=== PATIENT | female | born 1935 | race Caucasian/White ===

== ENCOUNTER 2017-01-12 18:55 | Emergency (ER) | payer MEDICARE ==
[~2017-01-12] VITALS: Ht 147.3 cm; Wt 61.2 kg
[~2017-01-12 18:55] MED LIST: ASPIRIN EC81 MG PO; DAILY MULTIPLE1 EACH PO; DIOVAN80 MG PO
[2017-01-12] MEDS ORDERED: BYSTOLIC10 MG PO (19:18)
[2017-01-12] MEDS ORDERED: LOSARTAN POTAS100 MG PO (19:19)
[2017-01-12] MEDS ORDERED: CEPHALEXIN500 MG PO (22:13)
--- NOTE | 2017-01-13 20:50 | EKG ---
[facility] [address] [facility] [place], [place] [address] Signed Normal sinus rhythm Low voltage QRS Borderline ECG No previous ECGs available Confirmed by LOUIS PAGE MD ([id number]) on 01/13/2017 8:50:14 PM Electronically Signed By: LOUIS PAGE MD 01/13/172049 PATIENT NAME: DESEAN RANGEL Electrocardiogram DATE OF : 35 PHYSICIAN: LOUIS PAGE MD REPORT #: [id number] REPORT IS CONFIDENTIAL AND NOT TO BE RELEASED WITHOUT AUTHORIZATION
== END 2017-01-12 22:42 | disposition home or self-care (01) ==
LOC: ED 18:55
DX: R42 Dizziness and giddiness (principal); J20.9 Acute bronchitis, unspecified; I10 Essential (primary) hypertension; Z90.710 Acquired absence of both cervix and uterus; Z90.49 Acquired absence of other specified parts of digestive tract; Z90.89 Acquired absence of other organs; Z98.890 Other specified postprocedural states; Z88.2 Allergy status to sulfonamides; Z88.5 Allergy status to narcotic agent; Z79.82 Long term (current) use of aspirin; Z79.899 Other long term (current) drug therapy
CPT/HCPCS: 71010; 80053; 81001; 84484; 85025; 93005; 93010; 96360; 99284; J7030

== ENCOUNTER 2017-12-12 00:59 | Emergency (ER) | payer MEDICARE ==
[~2017-12-12] VITALS: Ht 147.3 cm; Wt 61.2 kg
[~2017-12-12 00:59] MED LIST changes: +BYSTOLIC10 MG PO; +CEPHALEXIN500 MG PO; +LOSARTAN POTAS100 MG PO
[2017-12-12] MEDS ORDERED: CLOPIDOGREL75 MG PO (01:09)
--- NOTE | 2017-12-12 14:52 | EKG ---
[facility] [address] [facility] [place], [place] [address] Signed Normal sinus rhythm Normal ECG When compared with ECG of 12-JAN-2017 19:32, No significant change was found Confirmed by LOUIS PAGE MD ([id number]) on 12/12/2017 2:52:00 PM Electronically Signed By: LOUIS PAGE MD 12/12/17 1452 PATIENT NAME: NELSON RANGELERINN BAKERNE Electrocardiogram DATE OF : 35 PHYSICIAN: LOUIS PAGE MD REPORT #: [id number] REPORT IS CONFIDENTIAL AND NOT TO BE RELEASED WITHOUT AUTHORIZATION
== END 2017-12-12 03:50 | disposition home or self-care (01) ==
LOC: ED 00:59
DX: R42 Dizziness and giddiness (principal); I10 Essential (primary) hypertension; Z88.2 Allergy status to sulfonamides; Z88.8 Allergy status to other drugs, medicaments and biological substances; Z88.5 Allergy status to narcotic agent; Z79.899 Other long term (current) drug therapy
CPT/HCPCS: 70450; 71045; 80053; 81001; 84484; 85025; 85610; 85730; 93005; 93010; 96374; 99285; J2405

== ENCOUNTER 2023-03-22 10:07 | Inpatient (IN) | payer MEDICARE ==
[~2023-03-22] VITALS: Ht 147.3 cm; Wt 48.0 kg
[~2023-03-22 10:07] MED LIST changes: +CLOPIDOGREL75 MG PO
[2023-03-22 10:41] LABS: BASOPHILS 0.3 % (0-2); HEMATOCRIT 44.3 % (35.0-50.0); HEMOGLOBIN 14.6 g/dL (12.0-18.0); MCH 30.5 (27-36); MCHC 32.9 g/dl (30-36); MCV 92.6 fl (81-99); MONOCYTES 5.5 % (0-12); NEUTROPHILS 89.2 % (39-80); PLATELET COUNT 161 K/uL (140-440); RBC 4.79 M/ul (4.3-5.7); RDW 14.1 (10.5-15.0)
[2023-03-22 11:08] LABS: ALBUMIN 1.6 g/dL (3.4-5.0); ALBUMIN/GLOBULIN RATIO 0.33 (1.1-2.4); ANION GAP 12.6 (7-21); CALCIUM 9.2 mg/dL (8.5-10.1); POTASSIUM 3.6 mmol/L (3.5-5.1); PROTEIN, TOTAL 6.4 g/dL (6.4-8.2)
[2023-03-22 13:47] VITALS: BP 157/99
--- NOTE | 2023-03-22 14:19 | NUR ---
1339 - admitted to [facility], responsive to pain only,
--- NOTE | 2023-03-22 14:25 | NUR ---
ATTEMPT ASSESSMENT. PATIENT DOES NOT RESPOND TO VOICE. DR. CARTY IN TO SEE HER AT THIS TIME.
--- NOTE | 2023-03-22 15:30 | NUR ---
Got report from NEVILLE Meier as she is leaving for the day.
--- NOTE | 2023-03-22 16:32 | NUR ---
PEREZ CATHETER WAS PLACED. URINE OUTPUT RETURN. UA TO BE SENT TO LAB. PATIENT ONLY RESPONDS TO PAINFUL STIMULATION OR MOVEMENT OF ARMS OR LEGS BY NURSE.
--- NOTE | 2023-03-22 16:38 | NUR ---
Remains very lethargic. Unable to complete assessment, will attempt tomorrow. If patient remains unable to complete assessment, will contact family.
[2023-03-22 16:44] LABS: BILIRUBIN, URINE POSITIVE (negative); BLOOD/HGB, URINE LARGE (Negative); KETONE, URINE SMALL (Negative); LEUK ESTERASE, URINE NEGATIVE (negative); NITRITE, URINE NEGATIVE (negative)
[2023-03-22 16:51] LABS: BACTERIA, URINE NONE SEEN /hpf (negative); CRYSTALS, URINE NONE SEEN (0-1+); EPITHELIAL CELLS, URINE NONE SEEN /lpf (0-1+); WHITE BLOOD CELLS, URINE 0-1 /HPF (0-5)
[2023-03-22 16:52] LABS: COLLECTION TYPE, URINE CLEAN CATCH; REFLEX CULTURE, URINE No (No)
[2023-03-22 17:17] VITALS: BP 142/83
--- NOTE | 2023-03-22 17:25 | NUR ---
PATIENT WAS GIVEN FENTANYL IN THE ER. PATIENT IS CURRENTLY SLEEPING AND ONLY RESPONING TO PAINFUL STIMULATION OR THE NURSE MOVING PATIENT DURING NIH SCALE. PATIENT WILL MOAN BUT NO UNDERSTANDABLE WORDS.
--- NOTE | 2023-03-22 17:59 | NUR ---
Patient sleeping in bed with oxygen on. Regular respirations noted.
--- NOTE | 2023-03-22 18:48 | NUR ---
PATIENT ROLLED ONTO HER LEFT SIDE. PATIENT IS STARTING TO RESPOND MORE TO MOVEMENT AND TRYING TO HELP. WAS WAS AT 100% WITH 2L NC. THIS NURSE REMOVED O2 AND PATIENT STAYING AT 95% WILL CONTINUE TO MONITOR.
[2023-03-22 19:30] VITALS: BP 137/72
[2023-03-23 02:50] VITALS: BP 195/66
--- NOTE | 2023-03-23 02:59 | NUR ---
PT BEGINNING TO RESPOND MORE, MOANS WITH TOUCHING OF RT ARM, SHE IS MOVING LT ARM MORE, PUPILS STILL STILL PINPOINT AND NON RESPONSIVE, WILL NOT OPEN EYES AND FOLLOW DIRECTIONS, RESPONDING TO STIMULI OM FEET.
--- NOTE | 2023-03-23 03:00 | NUR ---
PT. VITALS AND I/OS CHARTED APPROPRIATELY. CALL LIGHT LEFT WITHIN REACH. NO OTHER NEEDS AT THIS TIME.
--- NOTE | 2023-03-23 03:15 | NUR ---
ATTEMPTED STROKE SCALE, PT NOT RESPONDING TO VOICE, PUPILS REMAIN PIN POINT AND NO REACTIVE. IS NOT RESPONDING TO TOUCH OTHER THAT PAIN IN RT ARM, MOANS WHEN MOVED
--- NOTE | 2023-03-23 03:20 | NUR ---
COMPLETED NIH, PT RESPONDED TO STIMULI AND VOICE, ATTEMPTED TO FOLLOW DIRECTION WHEN ASKED TO OPEN EYES, PUPILS ON RT REMAIN PIN POINT, LT PUPIL IS 4, FOLLOWED DIRECTION WHEN ASKED TO MOVE FEET, SHE CAN WIGGLE HER TOES, SHE IS UNABLE TO LIFT BL LEGS, ASKED HER TO SQUEEZE MY HANNAH AND SHE ATTEMPTED, IT WAS VERY LIGHT. WHEN TRYING TO MOVE RT ARM, SHE SLIDES IT SOMETIMES INTO POSITION THAT DOES NOT HURT, WHEN TOUCHED IT IS PAINFUL BUT CAN EXTEND WITH ASSIST, LT ARM SHE EXTENDS ON HER OWN,ASKED PT TO SMILE AND SHE HAS A LT SIDE DROOP. ASKED HER IF SHE WANTED TO MOVE TO HER BACK AND SHE SAID YES. HER WORDS ARE SPONTANEOUS TO ASKED AND IT TIMES, BUT SHE SAYS 1 WORD AT A TIME AND APPEARS TO FORCE THEM OUT
[2023-03-23 05:42] LABS: BASOPHILS 0.5 % (0-2); EOSINOPHILS 0.1 % (0-6); HEMATOCRIT 41.7 % (35.0-50.0); HEMOGLOBIN 13.9 g/dL (12.0-18.0); MCH 30.9 (27-36); MCHC 33.3 g/dl (30-36); MONOCYTES 6.2 % (0-12); NEUTROPHILS 83.2 % (39-80); PLATELET COUNT 145 K/uL (140-440); RBC 4.49 M/ul (4.3-5.7)
[2023-03-23 06:02] LABS: BUN/CREATININE RATIO 38.27 (6.0-28.6); CREATININE, SERUM 0.81 mg/dL (0.55-1.02)
[2023-03-23 06:52] VITALS: BP 143/76
--- NOTE | 2023-03-23 06:53 | NUR ---
PT. VITAL SIGNS DONE AND DOCUMENTED. PT. IN BED AWAKE, CALL LIGHT LEFT WITHIN REACH, ROOM TIDIED, TRASH CANS EMPTIED, NO OTHER NEEDS AT THIS TIME.
--- NOTE | 2023-03-23 07:10 | NUR ---
Report obtained by Teresa RN, pt slurred speech, opens eyes, IVF infusing. f/c patent.
--- NOTE | 2023-03-23 08:42 | NUR ---
hob elevated, female family member in room, pt more alert, trying to talk to niece Zoya. Bedside speech eval done at bedside, failed. coughing after liquids, long time to swallow and some dripped from her mouth. Charge nurse to and MD to be notified, aspiration precautions in place
--- NOTE | 2023-03-23 09:14 | NUR ---
MED REC COMPLETE
--- NOTE | 2023-03-23 09:20 | NUR ---
DR CARTY NOTIFIED OF PTS NOT PASSING BEDSIDE SPEECH EVAL, CHARGE NURSE AWARE TOO
[2023-03-23 09:59] VITALS: BP 163/88
--- NOTE | 2023-03-23 10:33 | NUR ---
MS LYUDMILA. PT APPEARED TO BE SLEEPING. DID NOT AWAKEN. LEFT PRAYER CARD AND CONTACT CARD.
--- NOTE | 2023-03-23 11:25 | NUR ---
Pt repositioned in bed, opens eyes when talked to. moans when turned to R side. was cooperative with care. PT in room working with pt
--- NOTE | 2023-03-23 12:19 | NUR ---
turned to R side, on room air, R arm elevated in pillows, worked with PT earlier. PT NPO, aspiration precautions in place. bruising over L knee healing, Allevyn dressing over R hip intact. f/c patent. eyes closed, oral care done
--- NOTE | 2023-03-23 12:40 | NUR ---
UR NOTE MCG STROKE: ISCHEMIC (ISC) INPATIENT 03/22/23 MET CLINICAL INDICATIONS FOR ADMISSION TO INPATIENT CARE GL DAY 1
[2023-03-23 13:47] VITALS: BP 152/67
--- NOTE | 2023-03-23 14:00 | NUR ---
Spoke with pt's niece, Zoya linda. Pt lives in a townhouse/duplex. Pt lives alone and has a cane and a walker. Pt , pt will need a SNF on dc. I gave her the list and the card to scan for review of SNFs in our area. She then states she would prefer to use [facility] as it is in town and she can visit daily. We then discussed half-way medicaid and I gave her the information to call [facility] and start this process. She also states there is a niece that would like to move in and care for Ana. I will send the chart to [facility] and request they review for placement next week.
--- NOTE | 2023-03-23 14:29 | NUR ---
Turned and repositioned, tolerated well, slight moaning present when R arm touched, up in pillows. turned to R side. heath care done, f/c patent, low uo. aware. IVF patent. NPO, mouth care done. comfortable, calm after turning, hob elevated for comfort and wash clothes applied between hands
--- NOTE | 2023-03-23 15:31 | NUR ---
RESTING, EYS CLOSED, ON ROOM AIR. NO CHANGES, IVF INFUSING, F/C PATENT, TELE#[address] W RARE OCCASSIONAL PVC'S.
[2023-03-23 17:05] VITALS: BP 153/77
--- NOTE | 2023-03-23 17:42 | NUR ---
Turned and repositioned to Right side, moaned once, eyes closed, procedures explained. non verbal,IVF infusing w/o problems. NPO, oral care done. f/c patent.tele#[address]
[2023-03-23 22:00] VITALS: BP 189/60
--- NOTE | 2023-03-24 00:28 | NUR ---
PT RESPONDS TO VOICE. FOLLOWS COMMANDS TO OPEN EYE, FOLLOW LIGHT, LIFT YOUR ARM, LIFT YOUR LEG, SQUEEZE FINGERS. SHE CAN NOT HOLD LEGS UP, SHE MAKES VERY SLIGHT MOVEMENTS WITH THEM IN BED. SHE CAN LIFT HER LEFT ARM UP ASSISTED AND THEN IF FALS TO THE BED. RT ARM IS IMMOBILE, SHE HAS PAIN IN THAT ARM AND SHOULDER. PUPILS ARE 3 AT THIS TIME, NON REACTIVE, SHE DOES FOLLOW LIGHT BUT GETS STUCK AND THEN CHANGED DIRECTION. SHE CAN ANSWER MOST QUESTIONS WITH YES/NO. HE WORDS ARE1 WORD AND MOST TIMES CANNOT UNDERSTAND THEM. REPOSITIONING TOLERATED
[2023-03-24 01:43] VITALS: BP 154/73
[2023-03-24 04:59] VITALS: BP 144/67
--- NOTE | 2023-03-24 07:38 | NUR ---
RECEIVED REPORT FROM NEVILLE CABRERA. PT RESTING IN BED WITH EYES CLOSED, RR EVEN AND UNLABORED. ASSUMING CARE OF PT WITH NEVILLE DAI.
--- NOTE | 2023-03-24 08:22 | NUR ---
NURSE AND I REPOSITIONED PATIENT ON HER LEFT SIDE. ALSO DID ORAL CARE AND WASHED HER FACE AND PUT CHAPSTICK ON. PATIENT IS NOW SLEEPING.
[2023-03-24 10:06] VITALS: BP 162/89
--- NOTE | 2023-03-24 10:23 | NUR ---
PT RESTING IN BED WITH EYES CLOSED, AWAKENS TO THIS RN'S VOICE. PT SAYS "YES" WHEN ASKED IF DOING OKAY AND IF TIRED. PATIENT SCORES 0 ON FLACC PAIN SCALE. PT UNABLE TO SAY NAME, DATE, OR LOCATION. NIHSS SCORE "28" FOR LOC, NOT ANSWERING MONTH/AGE, NOT CLOSING HANDS, PARTIAL GAZE PAULSY TO R SIDE, PARTIAL HEMIANOPSIA TO R SIDE, R SIDE FACIAL DROOP, LEFT ARM FALLING TO BED AFTER 2 SECONDS, R ARM AND BLE NOT LIFTING, BLE ATAXIA, R ARM ATAXIA, SLURRED SPEECH, NOT BEING ABLE TO DESCRIBE PICTURE, NOT BEING ABLE TO SAY SENTENCES. PT IS ABLE TO SAY LIST OF WORDS UNDERSTANDABLY AND IS ABLE TO FOLLOW COMMANDS. PUPILS CONTINUE TO BE SLUGGISH TO RESPOND TO LIGHT. PULSES FAINT IN BLE, EDEMA REMAINS IN HANDS AND BLE. NO CHANGE IN SKIN ASSESSMENT FROM PREVIOUS SHIFT, BRUISES AND REDDENED AREAS ON BLE REMAIN, ALLEYVEN ON R HIP AND R SHOULDER REMAIN C/D/I. LAST BM UNKNOWN, PT CONTINUES TO BE NPO WITH ASPIRATION PRECAUTIONS IN PLACE. PEREZ CATHETER REMAINS IN PLACE DRAINING QUANTITY SUFFICIENT CLEAR YELLOW URINE. PT STATES "NO" WHEN ASKED IF SHE HAS OTHER NEEDS AT THIS TIME, PT STATES "CAN'T" WHEN ASKED TO DEMONSTRATE USE OF THE CALL LIGHT. CURTAIN TO ROOM OPEN AND ROOM IS BY NURSES STATION, REQUIRES DILIGENT HOURLY ROUNDING. BED RAILS UP, ASPIRATION PRECAUTIONS IN PLACE.
--- NOTE | 2023-03-24 11:26 | NUR ---
PT RESTING IN BED WITH EYES CLOSED, RR EVEN AND UNLABORED. CURTAIN OPEN D/T PATIENT UNABLE TO USE CALL LIGHT INDEPENDENTLY.
[2023-03-24 11:43] LABS: BASOPHILS 0.6 % (0-2); EOSINOPHILS 0.5 % (0-6); HEMATOCRIT 41.4 % (35.0-50.0); HEMOGLOBIN 13.9 g/dL (12.0-18.0); MCH 31.1 (27-36); MCHC 33.6 g/dl (30-36); MCV 92.4 fl (81-99); MONOCYTES 6.9 % (0-12); PLATELET COUNT 146 K/uL (140-440); RBC 4.48 M/ul (4.3-5.7); RDW 13.5 (10.5-15.0)
[2023-03-24 11:58] LABS: ALBUMIN 2.6 g/dL (3.4-5.0); ALBUMIN/GLOBULIN RATIO 0.76 (1.1-2.4); ANION GAP 15.3 (7-21); BILIRUBIN, TOTAL 1.2 ng/dL (0.2-1.0); BUN/CREATININE RATIO 25.67 (6.0-28.6); CALCIUM 8.6 mg/dL (8.5-10.1); CREATININE, SERUM 0.74 mg/dL (0.55-1.02); POTASSIUM 3.3 mmol/L (3.5-5.1)
--- NOTE | 2023-03-24 12:02 | NUR ---
PT RESTING IN BED WITH EYES CLOSED, RR EVEN AND UNLABORED. CURTAIN OPEN D/T PT NOT BEING ABLE TO USE CALL LIGHT INDEPENDENTLY.
--- NOTE | 2023-03-24 12:38 | NUR ---
WE HAVE BEEN TURING PATIENT EVERY TWO HOURS. FROM RIGHT SIDE TO LEFT SIDE PUTTING PILLOWS UNDER HER ARMS. PUTTING PILLOWS UNDER HER HIPS AND BACK. AND BETWEEN HER LEGS.
--- NOTE | 2023-03-24 13:40 | NUR ---
DRESSING ON L AC IV CHANGED D/T SATURATION, IV WNL, FLUSHED. PT STATES "NO" WHEN ASKED IF SHE HAS ANY PAIN. PT RESPONDS TO VOICE AND TOUCH, UNABLE TO ANSWER ORIENTATION QUESTIONS, SPEECH CONTINUES TO BE SLURRED AND WITH SLOW RESPONSE TIME. RIGHT FACIAL DROOP REMAINS WELL ABILITY TO MOVE EXTREMETIES. PT CONTINUES TO HAVE SENSATION IN ALL EXTREMETIES. NO CHANGE IN PUPIL ASSESSMENT. CURTAIN OPEN D/T PT UNABLE TO INDEPENDENTLY USE CALL LIGHT, BED RAILS UP.
[2023-03-24 13:54] VITALS: BP 166/89
--- NOTE | 2023-03-24 15:28 | NUR ---
BEDSIDE BLOOD SUGAR IS 79 AT THIS TIME. PATIENT IS AWAKE, ALERT TO SELF AND PLACE. PATIENT IS ABLE TO RESPOND "YES" AND "NO" TO MY QUESTIONS. IV FLUIDS CHANGED AT THIS TIME PER PROVIDER ORDER. PATIENT REMAINS CLOSE TO RN STATION. NUERO STATUS UNCHANGED FROM EARLIER ASSESSMENT. PATIENT REPOSITIONED AT THIS TIME.
--- NOTE | 2023-03-24 15:50 | NUR ---
MONY CARE/PEREZ CARE PERFORMED BY NESSA CARPENTER. NEW DEPENDS IN PLACE, PT TURNED ON TO RIGHT SIDE.
--- NOTE | 2023-03-24 16:25 | NUR ---
PT LYING IN BED, JAGDEEP VISITING AT THE BEDSIDE. PATIENT TALKING MORE THAN DURING AFTERNOON ASSESSMENT AT THIS TIME, SAYING TWO-THREE WORDS AT A TIME. PATIENT STATES "NO, THANK YOU" WHEN ASKED IF SHE NEEDED ANYTHING AT THIS TIME, BED RAILS UP, CURTAIN OPEN D/T PATIENT INABILITY TO INDEPENDENTLY USE CALL LIGHT.
[2023-03-24 17:08] VITALS: BP 158/88
--- NOTE | 2023-03-24 18:32 | NUR ---
PT REQUESTS TO CALL MARIELENA MEYER AND FOR THIS RN TO GIVE HIM UPDATES ON HER CARE, MITCH CALLED, UPDATED. MITCH SPOKE WITH PT ON TELEPHONE AND PT STATES "YES" WHEN ASKED IF SHE WOULD LIKE MITCH TO BE UPDATED ON HER CARE IN THE FUTURE DURING THIS HOSPITAL STAY, STATES "HE IS THE PERSON IF ANYONE". PT STATES NO FURTHER NEEDS AT THIS TIME, CALL BUTTON PROVIDED, PT OCCASIONALLY ABLE TO USE, BED RAILS UP.
--- NOTE | 2023-03-24 19:22 | NUR ---
SHIFT REPORT RECEIVED FROM INGRID LOZADA, PT RESTING QUIETLY, WITHOUT DISTRESS.
[2023-03-24 20:45] VITALS: BP 147/67
--- NOTE | 2023-03-24 20:45 | NUR ---
VS DONE PER EDMUND RN AND GARY SZYMANSKI, REVIEWED BY THIS RN, NOTED TEMP WAS 99.4, PLAN TO MONITOR.
--- NOTE | 2023-03-24 20:55 | NUR ---
EYES OPEN, SMILE, SAID "THANK YOU". LIGHT MOANING WHEN TURNED TO LEFT SIDE. ON ROOM AIR. NO RESPONSE TO R ARM, TENDER WHEN TOUCHED, CALMER WHEN NOT TOUCHED. TURNED AND REPOSITIONED, F/C CARE DONE. PATENT. ORAL CARE DONE
--- NOTE | 2023-03-24 22:40 | NUR ---
PT RESTING QUIETLY, AWAKE AND ALERT, SPEECH SLOW BUT APPROPRIATE, ABLE TO ANSWER HER NAME, YEAR OF AND WHERE SHE IS APPROPRIATELY, ASSESSMENT COMPLETED , TEMP AT THIS TIME 98.3 TEMPORAL, CATH CARE GIVEN, URINE YELLOW, PT REMAINS NPO, IV PATENT IN L AC, SITE INTACT, SIDE RAILS UP X 4, BED LOW POSITION.
--- NOTE | 2023-03-25 00:25 | NUR ---
PT ASLEEP, RESP EVEN AND REG, PT GENTLY TILTED TO LEFT SIDE, IV PATENT AND INFUSING WELL.
[2023-03-25 02:11] VITALS: BP 152/75
--- NOTE | 2023-03-25 02:15 | NUR ---
PT AWAKEN FOR VS, VS STABLE AND PT AFEBRILE, U/O 1275ML LIGHT YELLOW URINE, PT REPOSITONED, IV PATENT, PT RESTING, NEURO STATUS UNCHANGED.
--- NOTE | 2023-03-25 04:20 | NUR ---
PT AWAKE, REPOSITIONED, WITHOUT COMPLAINTS AT THIS TIME, IV PATENT.
[2023-03-25 05:19] VITALS: BP 171/76
--- NOTE | 2023-03-25 05:19 | NUR ---
VS AND I/O COMPLETED PER GARY SZYMANSKI AND EDMUND RN, PT REPOSITONED AT THIS TIME.
--- NOTE | 2023-03-25 07:45 | NUR ---
PT RESTING EYES CLOSED AT TIME OF SHIFT REPORT, LEFT UNDISTURBED. CALL LIGHT IN REACH PT BREATHING EVEN AND UNLABORED SNORING SOFTLY.
--- NOTE | 2023-03-25 09:17 | NUR ---
PT AWAKENS TO VOICE, AGREES SHE SLEPT WELL. REPOSITIONED IN BED ORAL CARE PROVIDED.
[2023-03-25 09:56] VITALS: BP 148/80
--- NOTE | 2023-03-25 10:07 | NUR ---
PT IN BED ROTATED OFF LEFT SIDE. VITALS AND I/O'S COMPLETED, ORAL CARE AND SKIN CARE COMPLETED. CALL LIGHT WITHIN REACH.
--- NOTE | 2023-03-25 11:29 | NUR ---
P/T IN TO WORK WITH PT.
[2023-03-25 13:10] LABS: ANION GAP 11.2 (7-21); BUN/CREATININE RATIO 14.49 (6.0-28.6); CALCIUM 8.6 mg/dL (8.5-10.1); CREATININE, SERUM 0.69 mg/dL (0.55-1.02); POTASSIUM 3.2 mmol/L (3.5-5.1)
--- NOTE | 2023-03-25 14:30 | NUR ---
PT TRANSFERRED BACK TO BED VIA [facility]. FULL BED BATH AND CATH CARE COMPLETED. ORAL CARE PROVIDED, HAIR SHAMPOO'D AND LINENS CHANGED. PT IS ABLE TO SPEAK A COUPLE WORDS AT A TIME AGREES SHE FEELS REFRESHED. RETURNS TO DOZING SOFTLY ALMOST IMMEDIATELY. DR MCLAIN CONTACTED FOR ORDER CHANGE OF POTASSIUM FROM PO TO IV.
[2023-03-25 14:49] VITALS: BP 154/76
--- NOTE | 2023-03-25 16:12 | NUR ---
IV SITE LEFT AC FOUND INFILITRATED WITH POTASSIUM INFUSING. SITE IS RED AND SLIGHTLY PUFFY. NEW SITE ESTABLISHED R HAND. TOLERATED WELL BY PT
--- NOTE | 2023-03-25 17:38 | NUR ---
DR MCLAIN NOTIFIED OF ELEVATED BP, NO ORDERS GIVEN OF YET
[2023-03-25 17:58] VITALS: BP 163/110
--- NOTE | 2023-03-25 18:01 | NUR ---
PT REPOSITIONED. ASKED IF SHE IS IN PAIN PT SHAKES HER HEAD NO. ASKED IF SHE WANTS PAIN MEDICATION SHE FROWNS AND RESPONDS "NO" ORAL CARE PROVIDED SHE DENIES NEED OF ANYTHING.
--- NOTE | 2023-03-25 18:36 | NUR ---
PT IV ALARMING. PT PULLED IV OUT OF HER HAND. COBAN APPLIED WITH GAUZE NEW SITE ACCESSED
--- NOTE | 2023-03-25 19:08 | NUR ---
BEDSIDE REPORT RECEIVED FROM CRIS RN, PT RESTING QUIETLY, RESP EVEN AND REG. IV INFUSING WELL. SIDE RAILS UP AND BED LOW POSITION. HOB ELEVATED APPROX 20 DEGREES.
--- NOTE | 2023-03-25 21:30 | NUR ---
PT APPEARS TO SLEEP, RESP EVEN AND REG.
[2023-03-25 22:34] VITALS: BP 187/91
--- NOTE | 2023-03-25 23:00 | NUR ---
MONY/PEREZ CARE DONE. THIS TELEVISION SCRIPT WRITER AND PRIMARY RN REPOSITIONED PATIENT TO FLOAT.
--- NOTE | 2023-03-25 23:00 | NUR ---
PRICING CLERK REPORTS BP ELEVATED AT VS CHECK, BP RECHECKED AND IS CURRENTLY 160/95, PLAN TO MONITOR, ASSESSMENT COMPLETED, PT RESPONSIVE, FOLLOW SIMPLE COMMANDS, HAND DIRECTOR ENTERPRISE SYSTEMS WEAKER ON RIGHT SIDE, ABLE TO WIGGLE TOES TO REQUEST, ORAL CARE GIVEN, ORAL MOISTURIZER AND CHAP STICK TO LIPS USED. PT TURNED AND CATH CARE COMPLETED PER PRICING CLERK. PEREZ DRAINING YELLOW URINE, IV SITE WRAPPED AND PATENT.
--- NOTE | 2023-03-26 01:10 | NUR ---
PT APPEARS TO SLEEP, RESP EVEN AND REG, IVF INFUSING WELL.
[2023-03-26 02:11] VITALS: BP 177/90
--- NOTE | 2023-03-26 02:30 | NUR ---
PT RESTING QUIETLY, VS DONE BY ANASTASIIA SZYMANSKI AND REVIEWED, BP REMAINS ELEVATED 177/90. PT REPOSITIONED, BACK TO SLEEP.
[2023-03-26 04:30] VITALS: BP 149/78
--- NOTE | 2023-03-26 04:30 | NUR ---
PT RESTING WITH EYES CLOSED, OPENS EYES TO VOICE AND TOUCH, VS DONE, BP NOW 149/78, ORAL CARE GIVEN, PT TILTED TO RIGHT SIDE, PEREZ OUT 750ML YELLOW URINE.
--- NOTE | 2023-03-26 05:58 | NUR ---
PT ASLEEP, RESP EVEN AND REGULAR, NEW BAG OF D5NS HUNG AND INFUSING WELL AT 100ML/HR, SITE PATENT.
[2023-03-26 06:42] LABS: ANION GAP 9.2 (7-21); BUN/CREATININE RATIO 11.11 (6.0-28.6); CALCIUM 8.4 mg/dL (8.5-10.1); CREATININE, SERUM 0.72 mg/dL (0.55-1.02); MAGNESIUM 1.8 mg/dL (1.8-2.4); POTASSIUM 3.2 mmol/L (3.5-5.1)
--- NOTE | 2023-03-26 07:31 | NUR ---
PT RESTING EYES CLOSED A TIME OF SHIFT EXCHANGE. SNORING SOFTLY LEFT UNDISTURBED.
--- NOTE | 2023-03-26 09:10 | NUR ---
PT AWAKENS TO VOICE MAKES EYE CONTACT ANSWERS SIMPLE QUESTIONS WITH ONE WORD RESPONSE. REPOSTIONED IN BED ORAL CARE PROVIDED
--- NOTE | 2023-03-26 09:23 | NUR ---
PT NEPHEW CALLS FROM [employer] PHONE HELD TO HER EAR. PT CHUCKLES AND SLURRS SOME WORDS, SMILES, AND IS MORE ALERT THAN PREVIOUSLY THIS SHIFT. RETURNS TO RESTING EYES CLOSED SOON AFTER
[2023-03-26 09:51] VITALS: BP 148/78
--- NOTE | 2023-03-26 09:56 | NUR ---
PATIENT IN BED RESTING WITH EYES CLOSED. VITALS AND I&O'S DONE AND CHARTED. CALL LIGHT IN REACH. NO FURTHER NEEDS AT THIS TIME.
--- NOTE | 2023-03-26 10:27 | NUR ---
DR MCLAIN IN TO SEE PT.
--- NOTE | 2023-03-26 12:44 | NUR ---
PT WORKS WITH P/T TODAY MORE ALERT WHEN AWAKE THAN YESTERDAY BUT MORE SLEEPY INBETWEEN STIMULATION. REPOSITIONED AND ORAL CARE COMPLETE
--- NOTE | 2023-03-26 12:53 | NUR ---
IN TO REPOSITION PATIENT. PATIENT REPOSITIONED ONTO LEFT SIDE WITH PILLOW UNDER RIGHT HIP. MONY CARE AND CATH CARE DONE. NEW ATTENDS IN PLACE. CALL LIGHT IN REACH. NO FURTHER NEEDS AT THIS TIME.
--- NOTE | 2023-03-26 13:30 | NUR ---
PT RESTING EYES CLOSED AWAKENS TO TOUCH. AGREES SHE IS COMFORTABLE. DENIES PAIN
[2023-03-26 14:58] VITALS: BP 165/83
--- NOTE | 2023-03-26 15:03 | NUR ---
PATIENT IN BED RESTING WITH EYES CLOSED. VITALS AND I&O'S DONE AND CHARTED. PATIENT REPOSITIONED ONTO RIGHT SIDE WITH PILLOW UNDER LEFT SIDE. CALL LIGHT IN REACH. NO FURTHER NEEDS AT THIS TIME.
--- NOTE | 2023-03-26 15:42 | NUR ---
PT RESTING EYES CLOSED. OPENS EYES FOR VISITOR SAYS A FEW WORDS, MAINTAINS EYE CONTACT, APPEARS INTERACTIVE ABLE.
--- NOTE | 2023-03-26 17:36 | NUR ---
PT REPOSITIONED IN HER BED ORAL CARE DONE.
[2023-03-26 18:32] VITALS: BP 188/71
--- NOTE | 2023-03-26 18:38 | NUR ---
PATIENT IN BED RESTING WITH EYES CLOSED. VITALS AND I&O'S DONE AND CHARTED. RN NOTIFIED OF TEMP AND BLOOD PRESSURE. CALL LIGHT IN REACH. NO FURTHER NEEDS AT THIS TIME.
--- NOTE | 2023-03-26 19:02 | NUR ---
BEDSIDE REPORT RECEIVED FROM CRIS RN, PT RESTING QUIETLY WITH EYES CLOSED, RESP EVEN AND REG, HOB ELEVATED APPROX 25 DEGREES, SIDE RAILS UP X 4, BED LOW POSITION.
--- NOTE | 2023-03-26 19:50 | NUR ---
PT CONTINUES TO SLEEP, NEW BAG OF D5NS HUNG AND INFUSING WELL AT 100ML/HR, SITE INTACT.
--- NOTE | 2023-03-26 20:32 | NUR ---
PT RESTING QUIETLY WITH EYES CLOSED, VS AND ASSESSMENT DONE, PT OPENS EYES TO NAME, SMILES AND LAUGHS A COUPLE TIMES TO QUESTIONS ASKED BY THE NURSE, ABLE TO FINANCIAL ADVOCATE TO COMMAND, RIGHT SIDE WEAKER THAN THEN LEFT, PT REMAINS NPO, ORAL CARE GIVEN WITH ORAL MOISTURIZER, PT REPOSITIONED TO RIGHT SIDE, HOB REMAINS ELEVATED FOR ASPIRATION PRECAUTIONS, PEREZ PATENT, CATH CARE COMPLETED. IV SITE INTACT AND COVERED WITH KERLIX.
[2023-03-26 20:34] VITALS: BP 178/84
--- NOTE | 2023-03-26 22:30 | NUR ---
PT APPEARS TO SLEEP, RESP EVEN AND REG, WITHOUT DISTRESS.
--- NOTE | 2023-03-27 00:06 | NUR ---
PT APPEARS TO SLEEP, RESP EVEN AND REG, IVF INFUSING WELL, PT REPOSITIONED TO LEFT SIDE, AWAKENS BRIEFLY WITH TURN THEN BACK TO SLEEP. PEREZ DRAINING LIGHT YELLOW URINE.
--- NOTE | 2023-03-27 00:39 | NUR ---
PT APPEARS TO SLEEP, RESP EVEN AND REG.
--- NOTE | 2023-03-27 02:15 | NUR ---
PT RESTING, AWAKEN TO BE REPOSITIONED UP IN BED, AND TILTED TO RIGHT SIDE, PEREZ PATENT AND DRAINING WELL, IVF INFUSING WELL, PT MAKING EYE CONTACT AND SMILING AT TIMES, HOB ELEVATED AND WARM BLANKET GIVEN, ORAL CARE DONE WITH MOISTURIZER ORAL ONITMENT, PT RESTING WITHOUT DISTRESS.
--- NOTE | 2023-03-27 04:00 | NUR ---
PT APPEARS TO SLEEP, RESP EVEN AND REG.
[2023-03-27 05:00] VITALS: BP 130/93
--- NOTE | 2023-03-27 05:09 | NUR ---
PT AWAKEN FOR VS, VS STABLE AFEBRILE, PT REPOSITIONED TOWARD LEFT SIDE, IV PATENT AND INFUSING WELL. FACE WASHED PER SINTA WAFER FABRICATOR, ORAL CARE PER RN, PT SMILES WHEN SPOKEN TO, LEFT FACIAL DROOP CONTINUES AND RIGHT SIDED WEAKNESS, HOB REMAINS ELEVATED FOR APIRATION PREVENTION.
--- NOTE | 2023-03-27 05:52 | NUR ---
iv alarming, new bag as well as new tubing infusing at this time. pt with resp even and unlabored. did not stir when rn changing the iv tubing.
[2023-03-27 06:58] LABS: ANION GAP 8.1 (7-21); BUN/CREATININE RATIO 10.6 (6.0-28.6); CALCIUM 8.4 mg/dL (8.5-10.1); CREATININE, SERUM 0.66 mg/dL (0.55-1.02); MAGNESIUM 1.5 mg/dL (1.8-2.4); POTASSIUM 3.1 mmol/L (3.5-5.1)
--- NOTE | 2023-03-27 09:18 | NUR ---
RECIEVED SHIFT REPORT FROM NURSE AT 0710 PT WAS ASLEEP WITH EVEN AND UNLABORED BREATHING. CURRENTLY PT HAD AN ECHO AND SPOKE WITH DOCTOR ABOUT POSSIBLE PEG TUBE INSERTION. PT HAD AN ECHO ALSO. PT IS NOW ASLEEP IN ROOM WITH EVEN AND UNLABORED BREATHING . NO OTHER CARES NEEDED AT THIS TIME. CALL LIGHT WITHIN REACH
[2023-03-27 09:25] VITALS: BP 152/65
--- NOTE | 2023-03-27 09:45 | NUR ---
PATIENT SLEEPING, CALLED [employer] AND MESSAGE LEFT TO CALL DC RENTAL COUNTER CLERK. RECORDS SENT TO [facility] TO REVIEW FOR POSSIBLE PLACEMENT.
--- NOTE | 2023-03-27 10:47 | NUR ---
MS LYUDMILA. PT NOT IN ROOM. NO VISIT. PROVIDED PRAYER.
--- NOTE | 2023-03-27 13:14 | NUR ---
PT IS CURRENTLY WORKING WITH SPEECH THERAPY
--- NOTE | 2023-03-27 13:25 | NUR ---
Recieved notification from FRANCISCA at [facility]. They will be able to accept patient when she is ready for DC.
--- NOTE | 2023-03-27 13:48 | NUR ---
Gave pt a bed bath and changed her gown. Physical therapy came to work with pt as I was finishing up bed bath. Left pt sitting up in bed with physical therapy. Call light in reach.
[2023-03-27 14:19] VITALS: BP 157/88
--- NOTE | 2023-03-27 14:42 | NUR ---
PATIENT CONTINUES TO SLEEP. DISCHARGE MANGER PIANO TECHNICIAN HAS NOT SEEN FAMILY IN PATIENT ROOM TODAY. DC PIANO TECHNICIAN CALLED AND LEFT A MESSAGE TO DISCUSS PATIENT'S PLACEMENT AT [facility]. PATIENT HAS BEEN EXCEPTED AT [facility] FOR SNF PLACEMENT.
[2023-03-27 18:27] VITALS: BP 168/76
--- NOTE | 2023-03-27 19:10 | NUR ---
REPORT RECEIVED FROM CHIQUITA LOZADA. BOARD UPDATED. IV ASSESSED, WNL. pt RESTING. NO NEEDS AT THIS TIME. CALL LIGHT WITHIN REACH.
[2023-03-27 21:29] VITALS: BP 148/78
--- NOTE | 2023-03-27 21:33 | NUR ---
vs and i&o's collected per request of primary rn harriett. pt awoke to voice, expressive aphagia remains. no additional needs or concerns verbalized when asked, call light in reach.
--- NOTE | 2023-03-27 22:15 | NUR ---
ASSESSMENT AND VITAL SIGNS DONE. PEREZ CARE DONE. IVF INFUSING PER ORDER. IV ASSESSED, WNL. pt REPOSITIONED. CALL LIGHT IN REACH. NO OTHER NEEDS AT THIS TIME.
--- NOTE | 2023-03-27 23:49 | NUR ---
pt RESTING IN BED. RR EVEN AND UNLABORED. CALL LIGHT IN REACH.
--- NOTE | 2023-03-28 02:36 | NUR ---
pt RESTING IN BED WITH EYES CLOSED. pt REPOSITIONED TO LEFT SIDE WITH PILLOW UNDER RIGHT SIDE. PILLOW UNDER LEFT UNDER ARM. NO OTHER NEEDS AT THIS TIME. CALL LIGHT WITHIN REACH.
--- NOTE | 2023-03-28 04:18 | NUR ---
pt REPOSITIONED WITH PILLOWS UNDER BOTH HIPS. ORAL CARE DONE WITH SWAB AND MOUTH SPRAY. IV SITE ASSESSED, WNL. ARMS ON PILLOWS. pt O2 SATURATION AT 95% ON RA. pt SPOT CHECKED DUE TO MOUTH BREATHING AT NIGHT. CALL LIGHT WITHIN REACH. NO OTHER NEEDS AT THIS TIME.
--- NOTE | 2023-03-28 05:48 | NUR ---
pt RESTING ALL NIGHT. ORAL CARE DONE. MOUTH SPRAY ADMINIATERED TO KEEP MOUTH MOIST. pt REPOSTIONED Q2H. NIH STROKE SCALE DONE. pt ONLY ABLE TO ANSWER YES OR NO QUESTIONS.
[2023-03-28 06:31] VITALS: BP 186/73
[2023-03-28 06:46] LABS: BASOPHILS 0.3 % (0-2); EOSINOPHILS 0.9 % (0-6); HEMATOCRIT 38.6 % (35.0-50.0); HEMOGLOBIN 12.8 g/dL (12.0-18.0); LYMPHOCYTES 9.9 % (24-44); MCH 30.5 (27-36); MCHC 33.1 g/dl (30-36); MCV 92.3 fl (81-99); MONOCYTES 10.9 % (0-12); PLATELET COUNT 196 K/uL (140-440); RBC 4.19 M/ul (4.3-5.7); RDW 13.8 (10.5-15.0)
[2023-03-28 06:57] LABS: ANION GAP 8.7 (7-21); BUN/CREATININE RATIO 10.76 (6.0-28.6); CALCIUM 8.2 mg/dL (8.5-10.1); CREATININE, SERUM 0.65 mg/dL (0.55-1.02); MAGNESIUM 2.4 mg/dL (1.8-2.4); POTASSIUM 3.7 mmol/L (3.5-5.1)
--- NOTE | 2023-03-28 06:57 | NUR ---
ASSESSMENT AND VITAL SIGNS DONE. IV ASSESSED, WNL. NIH 21. ORAL CARE DONE. pt REPOSITIONED TO RT SIDE. PEREZ EMPTIED. CALL LIGHT WITH IN REACH. NO OTHER NEEDS AT THIS TIME.
--- NOTE | 2023-03-28 07:15 | NUR ---
REPORT RECEIVED FROM NEVILLE SANTOS AND NEVILLE GOMEZ. PT RESTING IN BED WITH EYES CLOSED, RR EVEN AND UNLABORED. NO NEEDS IDENTIFIED AT THIS TIME. CALL LIGHT IN REACH.
--- NOTE | 2023-03-28 08:00 | NUR ---
SPOKE TO [facility] FOR PATIENT([phone]). UPDATED NEADILIA ABOUT THE DISCHARGE PLAN. WILL BE CALLING THE [facility] TO TALK ABOUT DISCHARGE NEEDS. MANNY BARDALES WILL TAKE THE PATIENT WHEN MEDICALLY STABLE.
--- NOTE | 2023-03-28 09:01 | NUR ---
Changed pt brief and performed heath care. Oral care performed and face washed. Pt repositioned to left side with pillow under right hip. Call light in reach. Pt denies further needs at this time.
--- NOTE | 2023-03-28 09:21 | NUR ---
IN TO ADMINISTER MEDICATION, SEE MAR. IV FLUSHES AND IS INFUSING WNL. ASSESSMENT COMPLETE. LUNG SOUNDS CLEAR IN RUL, JAZMYN AND RLL. DIMINISHED IN LLL. BOWEL TONES HYPOACTIVE. PT REPORTS ABD TENDERNESS TO RLQ WITH PALPATION. HEART TONES IRREGULAR. TRACE EDEMA NOTED TO BLE. BLE ELEVATED ON PILLOW AND HEEL PROTECTORS IN PLACE. BRUISE NOTED TO LEFT CRAWFORD. PT DENIES PAIN AT THIS TIME. PT A&O TO SELF, AND MONTH. ASKED PT WHAT YEAR IT IS AND PT STATES "1932." INFORMED PT THAT IT IS 2022. ASKED PT WHERE PT IS AND PT STATES "[address]RO[address]." INFORMED PT THAT PT IS AT [facility] IN [place]. ASKED PT WHY PT IS IN THE HOSPITAL AND PT STATES "BECAUSE I CANNOT TALK RIGHT." ASKED PT HOW OLD PT IS AND PT STATES "54, I THINK" INFORMED PT THAT PT IS 87 YEARS OLD. PT REPORTS THAT RIGHT ARM IS SHARPER WHEN BILATERAL ARMS ARE POKED WITH EDGE OF ALCOHOL PACKET. PT REPORTS SAME SENSATION IN BILATERAL LEGS AND CHEEKS. NIH SCORE COMPLETE, SCORE OF 18 NOTED. IV FLUSHES AND IS INFUSING WNL. PT LAYING IN BED ON LEFT SIDE. PT DENIES ANY OTHER NEEDS AT THIS TIME. CALL LIGHT IN REACH.
[2023-03-28 09:52] VITALS: BP 155/73
--- NOTE | 2023-03-28 10:34 | NUR ---
Removed pillow from under pts right hip and placed a pillow under the left hip. Recorded vitals and documented I&Os. Call light in reach. Pt denies further needs at this time.
--- NOTE | 2023-03-28 11:08 | NUR ---
PHYSICAL THERAPY IN ROOM WITH PT. NO NEEDS FROM THIS RN AT THIS TIME. CALL LIGHT IN REACH.
--- NOTE | 2023-03-28 11:15 | NUR ---
MS ROUNDS. PHYSICAL THERAPY IN WITH PT. DID NOT INTERRUPT. PROVIDED SILENT PRAYER.
--- NOTE | 2023-03-28 11:51 | NUR ---
IN TO ROUND ON PT. PT LAYING IN BED SEMI-FOWLERS. PT RESPONDS WHEN ADDRESSED. PT DENIES ANY NEEDS AT THIS TIME. CALL LIGHT IN REACH.
--- NOTE | 2023-03-28 12:20 | NUR ---
Repositioned pt to left side by putting a pillow on the right side. Pt resting with eyes closed in bed. Call light in reach. No further needs at this time.
--- NOTE | 2023-03-28 13:25 | NUR ---
IN TO ROUND ON PT. PT LAYING IN BED SEMI-FOWLERS. EYES CLOSED, RR EVEN AND UNLBAORED. NO NEEDS IDENTIFIED AT THIS TIME. CALL LIGHT IN REACH.
--- NOTE | 2023-03-28 14:14 | NUR ---
PATIENT IS SLEEPING AT THIS TIME. PATIENT AND JAGDEEP ELIZONDO HAVE AGREED THAT THE PATIENT WILL HAVE A PEG-TUBE ON SUNDAY.ODD TICKET CLERK WILL RETURN LATER TO SEE PATIENT.
--- NOTE | 2023-03-28 14:18 | NUR ---
IN TO ROUND ON PT. OCCUPATIONAL THERAPY AND PHYSICAL THERAPY IN ROOM WORKING WITH PT. NO NEEDS FROM THIS RN AT THIS TIME. CALL LIGHT IN REACH.
[2023-03-28 14:20] VITALS: BP 170/88
--- NOTE | 2023-03-28 15:12 | NUR ---
IN TO ROUND ON PT. PT LAYING IN BED WITH EYES CLOSED. RR EVEN AND UNLABORED. PT RESPONDS WHEN ADDRESSED AND SLIGHTLY OPENS EYES. ASSESSMENT COMPLETE. LUNG SOUNDS CLEAR. BOWEL TONES ACTIVE. PT DENIES PAIN AT THIS TIME. ASKED PT WHAT MONTH IT IS AND PT STATES "AUGUST." INFORMED PT IT IS MARCH. ASKED PT WHAT YEAR IT IS AND PT STATES "I DO NOT KNOW." INFORMED PT IT IS 2022. ASKED PT WHERE PT IS AND PT SPEAKS WORDS, YET UNCOMPREHESIBLE. PT A&O TO SELF. PRN MEDICATION ADMINISTERED, SEE MAR. PT DENIES ANY OTHER NEEDS AT THIS TIME. CALL LIGHT IN REACH. SIDE RAILS UP FOR SAFTEY.
--- NOTE | 2023-03-28 15:42 | CONS ---
[facility] [address], [place] [address] Signed DATE OF CONSULTATION: 03/28/2023 CHIEF COMPLAINT: Stroke. HISTORY OF PRESENT ILLNESS: Ana is an 87-year-old female, who apparently has had her 2nd stroke. She was found down in her home by her family member. She had slurred speech and decrease in her right side of her face and the right upper extremity. She was brought to the local emergency room. 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 She has been admitted to the hospitalist service on 03/22/2023. She is still not fully recovering and she is to the point now she is needing PEG tube for nutritional support as well as medication and hydration. Ana and her niece have agreed in that regard. Consequently, I have been asked to see her as a local general surgeon. PAST MEDICAL HISTORY: Stroke and hypertension. PAST SURGICAL HISTORY: Includes bilateral cataract surgery, repair of thoracic aortic aneurysm, , hysterectomy, left knee surgery, cholecystectomy, appendectomy, left ganglion cyst and one of her tonsils was removed. SOCIAL HISTORY: Jacquelin Wells is her niece at [phone]. FAMILY HISTORY: None. REVIEW OF SYSTEMS: None. ALLERGIES: Sulfa, antihistamine, statins, and codeine. MEDICATIONS: Nebivolol, losartan, Plavix, and multivitamin. PHYSICAL EXAMINATION: VITAL SIGNS: Blood pressure is 155/73, heart rate is 89, respiratory rate is 18, temperature is 98.2. She is 95% on 2 L nasal cannula. She is 4 feet 10 inches at 48 kg with a body mass index of 22. Electronically Signed By: SCOTTY KUMAR MD 03/28/23 1542 PATIENT NAME: ANA RANGEL CONSULTATION DATE OF : 35 REPORT #: [id number] PHYSICIAN: SCOTTY KUMAR MD PCP: YOKO ANGLIN MD REPORT IS CONFIDENTIAL AND NOT TO BE RELEASED WITHOUT AUTHORIZATION [facility] [address], [place] [address] Signed GENERAL: Ana is an 87-year-old female, who appears elderly and lying supine semi-recumbent in her hospital bed. She is kind of towards the left side. She seems to understand what I am saying, but she clearly has dysarthria. LUNGS: Generally clear to auscultation bilaterally. HEART: Regular rate and rhythm with a positive ejection murmur. ABDOMEN: Soft, flat and nontender with several surgical scars. LABORATORY DATA: Her white blood cell count is 9.7, hemoglobin 12, neutrophils 78, platelets 196. Electrolytes are unremarkable with a creatinine of 0.65. RADIOGRAPHIC STUDIES: CT scan of the head on the and the are reviewed. It looks like she has a left pontine infarction part of the cerebellum. ASSESSMENT AND PLAN: Ana is an 87-year-old female, who presents with a stroke affecting the right side of her body and dysarthria and dysphagia. She is in need of nutritional support via PEG tube along with hydration and medications. I have reviewed that with Ana as well as her niece, Jacquelin. There is risk including, but not limited to bleeding, infection, scarring, change in contour of the skin, damage to bowel, perforation of the stomach, irritation of the skin, and other unforeseen comorbidities. They have expressed understanding and would like to proceed. We will probably do this in two days rather than tomorrow since my schedule is absolutely full tomorrow. They have expressed understanding and agreed with the above plan. Scotty Kumar MD ALB/MODL /[id number] cc: MD Yoko Baum MD Copies: SCOTTY KUMAR MD Electronically Signed By: SCOTTY KUMAR MD 03/28/23 1542 PATIENT NAME: ANA RANGEL CONSULTATION DATE OF : 35 REPORT #: [id number] PHYSICIAN: SCOTTY KUMAR MD PCP: YOKO ANGLIN MD REPORT IS CONFIDENTIAL AND NOT TO BE RELEASED WITHOUT AUTHORIZATION [facility] [address], [place] [address] Signed YOKO ANGLIN MD ~ Electronically Signed By: SCOTTY KUMAR MD 03/28/23 1542 PATIENT NAME: JUAN CARLOSANAERINN HERNANDEZ CONSULTATION DATE OF : 35 REPORT #: [id number] PHYSICIAN: SCOTTY KUMAR MD PCP: YOKO ANGLIN MD REPORT IS CONFIDENTIAL AND NOT TO BE RELEASED WITHOUT AUTHORIZATION
--- NOTE | 2023-03-28 16:51 | NUR ---
IN TO ROUND ON PT. PT LAYING IN BED SEMI-FOWLERS. PT OPENS EYES WHEN THIS RN TOUCHES PTs ARM TO LOOK AT IV SITE. IV INFUSING WNL. PT DENIES ANY OTHER NEEDS AT THIS TIME. CALL LIGHT IN REACH.
[2023-03-28 17:09] VITALS: BP 183/84
--- NOTE | 2023-03-28 18:07 | NUR ---
IN TO ROUND ON PT. PT LAYING IN BED SEMI-FOWLERS. PT REPSONDS WHEN ADDRESSED. PT VISITING WITH NIECE CARO. PT REQUSTING PRN MEDICATION TO MOISTEN MOUTH, PRN MEDICATION ADMINISTERED, SEE MAY. CHAP STICK APPLIED TO LIPS. ALLERGY BAND, FALL RISK BAND APPLIED TO PTs ARM. CONSENT FORM SIGNED. PT DENIES ANY OTHER NEEDS AT THIS TIME. CALL LIGHT IN REACH.
--- NOTE | 2023-03-28 19:05 | NUR ---
REPORT RECIEVED FROM SHAGGY LOZADA. pt RESTING IN BED. IV ASSESSED, WNL. pt DENIES ANY NEEDS AT THIS TIME. CALL LIGHT WITHIN REACH.
[2023-03-28 20:38] VITALS: BP 180/89
--- NOTE | 2023-03-28 21:12 | NUR ---
ASSESSMENT AND VITAL SIGNS DONE. IVF INFUSING PER ORDER, SEE MAR. BED BATH DONE. FACE WIPED. IV ASSESSED, WNL. PEREZ CARE, DONE. ORAL CARE, DONE. BRIEF CHANGED. LINENS CHANGED. NEW IVF INFUSING. SCHEDULED MEDICATIONS ADMINISTERED, SEE MAR. CALL LIGHT WITHIN REACH. pt DENIES ANY NEEDS AT THIS TIME. pt AWAKE AND SMILING AND ANSWERING QUESTIONS TO THE BEST OF HER ABILITY. pt POSITIONED ON HER LEFT SIDE WITH A PILLOW UNDER HER RIGHT SIDE. HEEL PROTECTORS ON.
--- NOTE | 2023-03-28 23:42 | NUR ---
pt REPOSITIONED ON RIGHT SIDE WITH PILLOWS UNDER LEFT HIP AND ARMS. IV ASSESSED, WNL. NO OTHER NEEDS AT THIS TIME. RR EVEN AND UNLABORED.
[2023-03-29] VITALS (7 sets, daily range): BP systolic 133–182; BP diastolic 84–96
--- NOTE | 2023-03-29 02:25 | NUR ---
ASSESSMENT DONE. pt SOMEWHAT IRRITABLE DURING ORINETATION ASSESSMENT AND VERBALIZED DESIRE TO BE LEFT ALONE AND REST. pt THEN REPORTED HER NAME AND CORRECTLY. VSS, SBP REMAINS ELEVATED BUT WITHIN PARAMETERS. LEFT SIDE DROOP ALONG WITH SLURRED SPEECH REMAINS. ORAL CARE PROVDIED. pt STATES SENSATION IS THE SAME IN BOTH LEFT AND RIGHT SIDE. BG CHECKED, RESULT OF 133. NO ACUTE CHANGES FROM INITIAL ASSESSMENT. pt WILL OCCASSIONALLY TALK TO SELF WHILE ASLEEP. pt REPOSITIONED WITH PILLOWS UNDER BOTH HIPS AND ARMS. IV ASSESSED, WNL. CALL LIGHT WITHIN REACH.
--- NOTE | 2023-03-29 03:08 | NUR ---
LATHE MACHINE OPERATOR STRENGTH SLIGHTLY WEAKER IN RIGHT HAND CAPARED TO LEFT HAND. MINIMAL MOVEMENT IN RIGHT ARM AND LEG. pt ABLE TO MOVE FEET AND WIGGLE TOES. SENATION INTACT IN BILAT EXTREMATIES.
--- NOTE | 2023-03-29 04:10 | NUR ---
pt RESITNG IN BED. pt REPOSITIONED TO RT SIDE WITH PILLOW UNDER LT HIP. RR EVEN AND UNLABORED. PILLOWS UNDER ARMS. IV ASSESSED, WNL. CALL LIGHT WITHIN REACH. NO OTHER NEEDS AT THIS TIME.
[2023-03-29 05:30] LABS: BASOPHILS 0.5 % (0-2); EOSINOPHILS 1.4 % (0-6); HEMATOCRIT 38.2 % (35.0-50.0); HEMOGLOBIN 12.9 g/dL (12.0-18.0); LYMPHOCYTES 12.6 % (24-44); MCHC 33.8 g/dl (30-36); MCV 91.5 fl (81-99); MONOCYTES 10.4 % (0-12); NEUTROPHILS 75.1 % (39-80); PLATELET COUNT 231 K/uL (140-440); RBC 4.17 M/ul (4.3-5.7); RDW 13.7 (10.5-15.0)
--- NOTE | 2023-03-29 05:36 | NUR ---
pt RESTED OFF AND ON DURING THE SHIFT. pt RESTLESS AT TIMES. pt REPOSITIONED Q2H. NPO. Q2H ORAL CARE DONE. pt DENIES NEED FOR PAIN MEDICATION. SYSTOLIC BP ELEVATED BUT WITHIN PERAMETERES. EDWARD LIFT WHEN OUT OF BED. PEREZ CATH PATENT, QS. NO BM NOTED. PLAN OF CARE TO PLACE POSIBLE PEG TUBE ON THE .
[2023-03-29 05:39] LABS: ANION GAP 10.9 (7-21); BUN/CREATININE RATIO 7.93 (6.0-28.6); CALCIUM 8.8 mg/dL (8.5-10.1); CREATININE, SERUM 0.63 mg/dL (0.55-1.02); MAGNESIUM 2.1 mg/dL (1.8-2.4); POTASSIUM 3.9 mmol/L (3.5-5.1)
--- NOTE | 2023-03-29 06:05 | EKG ---
[facility] [address] [facility] [place] [address] Signed Normal sinus rhythm Left axis deviation Inferior infarct , age undetermined Abnormal ECG When compared with ECG of 12-DEC-2017 02:00, Inferior infarct is now present Confirmed by ANCA RODRIGUEZ MD ([id number]) on 03/29/2023 6:05:29 AM Electronically Signed By: ANCA RODRIGUEZ 03/29/23 0605 PATIENT NAME: JUAN CARLOSDESEANERINN HERNANDEZ Electrocardiogram DATE OF : 35 PHYSICIAN: ANCA RODRIGUEZ REPORT #: [id number] REPORT IS CONFIDENTIAL AND NOT TO BE RELEASED WITHOUT AUTHORIZATION
--- NOTE | 2023-03-29 07:15 | NUR ---
REPORT RECEIVED FROM NEVILLE SANTOS AND NEVILLE WADSWORTH. PT LAYING IN BED SEMI-FOWLERS. EYES CLOSED, RR EVEN AND UNLABORED. RR OF 16 NOTED. IV INFUSING WNL. NO NEEDS IDENTIFIED AT THIS TIME. CALL LIGHT IN REACH.
--- NOTE | 2023-03-29 09:05 | NUR ---
IN TO ADMINISTER MEDICAITONS, SEE MAR. PT LAYING IN BED SEMI-FOWLERS. PT RESPONDS WHEN ADDRESSED. PRN MOUTH COAT ADMINISTERED, SEE MAR. LIP BALM APPLIED TO LIPS. ASSESSMENT COMPLETE. LUNG SOUNDS CLEAR. BOWEL TONES ACTIVE. PT DENIES PAIN AT THIS TIME. EDEMA NOTED TO BLE. PT CONTINUES TO REST IN BED. PT RESPONDS WHEN ADDRESSED, ONLY TO YES NO QUESTIONS AT THIS TIME. IV FLUSHES AND IS INFUSING WNL. PT DENIES ANY OTHER NEEDS AT THIS TIME. CALL LIGHT IN REACH. PT CONTINUES TO REST IN BED.
--- NOTE | 2023-03-29 10:15 | NUR ---
THE PATIENT'S DC PLAN IS WHEN PATIENT IS MEDICALLY STABLE POST PEG-TUBE, THE PATIENT WILL DC TO [facility]. [facility] WILL BE KEPT UPDATED ON PATIENT'S PROGRESS. [facility] BED STATUS STATUS WILL BE MONITORED FOR PLACEMENT AFTER PATIENT'S SURGICAL PROCEDURE.
--- NOTE | 2023-03-29 10:30 | NUR ---
ROUNDED ON PT. PT RESPIRATIONS EVEN AND REGULAR. PT TURNED BY PHYSICAL THERAPY. PT APPEARS TO BE RESTING COMFORTABLY ATT.
--- NOTE | 2023-03-29 11:05 | NUR ---
UPDATES FROM THE MEDICAL RECORD SENT TO [place].DC PLANNING WILL KEEP SNF UPDATED.
--- NOTE | 2023-03-29 12:26 | NUR ---
IN TO ROUND ON PT. PT LAYING IN BED SEMI-FOWLERS. EYES CLOSED, RR EVEN AND UNLABORED. PT OPENS EYES WHEN THIS RN TOUCHES LEFT ARM. PT REPONDS WHEN ADDRESSED. PT DENIES ANY NEEDS AT THIS TIME. CALL LIGHT IN REACH. IV INFUSING WNL.
--- NOTE | 2023-03-29 13:47 | NUR ---
MS ROUNDS. PT APPEARED TO BE SLEEPING. DID NOT DISTURB. PROVIDED SILENT PRAYER. LEFT GUIDEPOST WITH PRAYER CARD.
--- NOTE | 2023-03-29 14:20 | NUR ---
UR NOTE MCG STROKE: ISCHEMIC (ISC) 03/24/23 VARIANCE GL DAY 2 03/26/23 VARIANCE GL DAY 2
--- NOTE | 2023-03-29 15:03 | NUR ---
IN TO ROUND ON PT. PT RESTING IN BED SEMI-FOWLERS. EYES CLOSED, RR EVEN AND UNLABORED. PT RESPONDS WHEN ADDRESSED AND OPENS EYES. ASSESSMENT COMPLETE. LUNG SOUNDS CLEAR. BOWEL TONES ACTIVE. ABD TENDER WITH PALPATION. PT A&O TO SELF. ASKED PT WHERE PT IS AND PT STATES "[place] I HAVE NOT BEEN." INFORMED PT THAT PT IS AT THE [facility]. ASKED PT WHAT THE DATE IS AND PT STATES "." ASKED PT WHAT THE MONTH IS AND PT STATES "I DO NOT KNOW." INFORMED PT IT IS MARCH. ASKED PT WHAT YEAR IT IS AND PT STATES "1955." INFORMED PT IT IS March2022. PT GOES BACK TO RESTING IN BED WITH EYES CLOSED, RR EVEN AND UNLABORED. NO OTHER NEEDS IDENTIFIED AT THIS TIME. CALL LIGHT IN REACH.
--- NOTE | 2023-03-29 16:23 | NUR ---
THIS RN ALERTED BY NEVILLE LEYVA THAT PT HAS A SKIN TEAR ON RIGHT HIP. IN TO ASSESS. SKIN TEAR NOTED TO PTs RIGHT HIP. ALLEVYN PLACED. PT LAYING IN BED SEMI-FOWLERS. EYES CLOSED, RR EVEN AND UNLBAORED. NO OTHER NEEDS IDENTIFIED AT THIS TIME. CALL LIGHT IN REACH.
--- NOTE | 2023-03-29 17:30 | NUR ---
IN TO ROUND ON PT. PT RESTING IN BED WITH EYES CLOSED. RR EVEN AND UNLABORED. IV INFUSING WNL. NO NEEDS IDENTIFIED AT THIS TIME. CALL LIGHT IN REACH.
--- NOTE | 2023-03-29 19:05 | NUR ---
REPORT RECIEVED FROM SHAGGY LOZADA. pt RESTING IN THE BED. IV ASSESSED, WNL. BOARD UPDATED. pt DENIES ANY NEEDS AT THIS TIME. CALL LIGHT IN REACH.
--- NOTE | 2023-03-29 20:30 | NUR ---
ASSESSMENT AND VITAL SIGNS DONE. pt REPOSITIONED WITH PILLOWS UNDER BOTH HIPS AND ARM. IV ASSESSED AND FLUSHED, WNL. IVF INFUSING, WNL. ORAL CARE DONE. PEREZ CARE DONE. pt ORIENTATED TO SELF. HEEL PROTECTORS ON. SCHEDULED MEDICATION ADMINISTERED, SEE MAR. pt DENIES ANY NEEDS AT THIS TIME. pt STATES SENSATION IS THE SAME IN BILAT ARMS AND LEGS. pt CAN WIGGLE HER TOES. BOWEL TONES ACTIVE. CALL LIGHT WITHIN REACH.
--- NOTE | 2023-03-29 22:59 | NUR ---
pt RESTING IN THE BED WITH EYES CLOSED. pt POSTIONED ON RIGHT SIDE WITH PILLOW UNDER LEFT HIP. ORAL CARE DONE. CALL LIGHT WITHIN REACH. NO OTHER NEEDS AT THIS TIME.
[2023-03-30] VITALS (25 sets, daily range): BP systolic 78–131; BP diastolic 53–94
--- NOTE | 2023-03-30 01:30 | NUR ---
pt REPOSITIONED TO HER RIGHT SIDE. PILLOWS PLACED UNDER LEFT HIP. ORAL CARE DONE. PEREZ EMPTIED. CALL LIGHT IN REACH. NO OTHER NEEDS AT THIS TIME.
--- NOTE | 2023-03-30 04:28 | NUR ---
pt REPOSITIONED WITH PILLOWS UNDER BOTH HIPS. ORAL CARE DONE. RR EVEN AND UNLABORED. NO S/SX OF OBVIOUS DISTRESS. CALL LIGHT WITHIN REACH.
[2023-03-30 05:43] LABS: BASOPHILS 0.6 % (0-2); EOSINOPHILS 0.9 % (0-6); HEMOGLOBIN 13.6 g/dL (12.0-18.0); LYMPHOCYTES 10.4 % (24-44); MCV 91.4 fl (81-99); NEUTROPHILS 78.1 % (39-80); PLATELET COUNT 273 K/uL (140-440); RBC 4.38 M/ul (4.3-5.7)
--- NOTE | 2023-03-30 05:44 | NUR ---
pt REPOSITIONED WITH PILLOWS UNDER RIGHT HIP. VITAL SIGNS DONE. ORAL CARE DONE. PEREZ EMPTIED. CALL LIGHT WITHIN REACH.
[2023-03-30 05:58] LABS: ANION GAP 11.9 (7-21); BUN/CREATININE RATIO 7.04 (6.0-28.6); CREATININE, SERUM 0.71 mg/dL (0.55-1.02); MAGNESIUM 1.9 mg/dL (1.8-2.4); POTASSIUM 3.9 mmol/L (3.5-5.1)
--- NOTE | 2023-03-30 07:14 | NUR ---
REPORT RECEIVED FROM NEVILLE SANTOS AND EDMUND RN. PT RESTING IN BED SEMI-FOWLERS. EYES CLOSED, RR EVEN AND UNLABORED. PT ALLOWED TO REST AT THIS TIME. NO NEEDS IDENTIFIED. CALL LIGHT IN REACH.
--- NOTE | 2023-03-30 08:17 | NUR ---
IN TO ADMINISTER MEDICAITON, SEE MAR. PT LAYING IN BED AND RESPONDS WHEN ADDRESSED. NESSA TRIPLETT IN TO ASSIST WITH PRE-SURGICAL WIPE DOWN, PEREZ CARE, ORAL CARE, LINEN CHANGE, VITALS AND I&Os. LIP BALM APPLIED. ASSESSMENT COMPLETE. LUNG SOUNDS CLEAR. BOWEL TONES HYPOACTIVE. ABD TENDER WITH PALPATION. PT DENIES PAIN AT THIS TIME. TRACE EDEMA NOTED TO BLE. HEEL PROTECTORS IN PLACE. PT A&O TO SELF. PT NOT ORIENTED TO PLACE, DATE OR TIME. IV FLUSHES AND IS INFUSING WNL. PT RESTING IN BED WITH EYES CLOSED, RR EVEN AND UNLABORED. NO OTHER NEEDS IDENTITFIED AT THIS TIME. CALL LIGHT IN REACH. SIDE RAILS UP FOR SAFTEY.
--- NOTE | 2023-03-30 08:22 | NUR ---
PATIENT WILL BE GOING TO THE OR FOR A PEG-TUBE TODAY PER PATIENT AND FAMILY REQUEST. DR. KUMAR WILL BE DOING THE PROCEDURE. THE DISCHARGE PLAN CONTINUES TO BE THE SAME,THE PATIENT WILL GO TO [facility] WHEN MEDICALLY STABLE.UPDATES WILL BE SENT TO [facility].
--- NOTE | 2023-03-30 09:59 | NUR ---
MS ROUNDS. NO VISIT. PT APPEARED TO BE SLEEPING. DID NOT DISTURB. PROVIDED SILENT PRAYER.
--- NOTE | 2023-03-30 10:01 | NUR ---
IN TO ROUND ON PT. PT LAYING IN BED SEMI-FOWLERS. EYES CLOSED, RR EVEN AND UNLABORED. NO NEEDS IDENTIFIED AT THIS TIME. CALL LIGHT IN REACH.
--- NOTE | 2023-03-30 11:16 | NUR ---
IN IV PUMP ALARMING, RESOLVED. NEW BAG OF FLUIDS STARTED, SEE MAR. PT RESTING IN BED SEMI-FOWLERS WITH EYES CLOSED, RR EVEN AND UNLBAORED. NO NEEDS IDENTIFIED AT THIS TIME. CALL LIGHT IN REACH.
--- NOTE | 2023-03-30 11:27 | NUR ---
IN WITH NESSA TRIPLETT TO REPOSITION PT. PILLOWS PLACED UNDER PTs LEFT SIDE, PT LAYING ON RIGHT SIDE. PT CONTINUES TO REST IN BED WITH EYES CLOSED, RR EVEN AND UNLABORED. NO OTHER NEEDS IDENTIFIED AT THIS TIME. CALL LIGHT IN REACH.
--- NOTE | 2023-03-30 11:49 | NUR ---
SURGERY NURSE HERE TO TAKE PT DOWN FOR SURGERY. THIS RN IN TO ASSIST WITH TRANSFERRING PT. EDWARD PLACED UNDER PT. NEVILLE MCDANIEL AND SURGERY NURSE IN ROOM, NO OTHER NEEDS FROM THIS RN.
--- NOTE | 2023-03-30 12:42 | NUR ---
UR NOTE MCG STROKE: ISCHEMIC (ISC) 03/28/23 VARIANCE GL DAY 2 03/30/23 VARIANCE GL DAY 2
--- NOTE | 2023-03-30 13:45 | NUR ---
PATIENT ARRIVED FROM PACU TO ROOM 128 ON STRETCHER. PATIENT TRANSFERED TO BED BY STAFF. PATIENT ANSWERES TO NAME BUT DOES NOT OPEN HER EYES OR SAY ANYTHING. PATIENTS BLOOD PRESSURES ON ARRIVAL WERE 70'S SYSTOLIC AND HR 180S. PATIENT ON 6L NC. REPORT RECIEVED FROM PACU RNS AND MS NEVILLE COON. PATIENT HOOKED UP TO DEFIBILATOR PADS. NEVILLE WINTER STARTED PATIENT ON PHENELEPHRINE GTT, BOLUS OF FLUID STARTED AT THE SAME TIME. GTT TITRATED WITH PHARMACY IN THE ROOM. MD RODRIGUEZ DOWN TO CONSULT WITH DR PETERSON IN THE ED ABOUT CARDIOVERSION D/T ARRHYTHMIA WITH UNSTABLE BLOOD PRESSURES AND PRESSORS IN USE. CONSENT SIGNED AND CODE CART IN THE ROOM .MD RODRIGUEZ VERIFIED WITH PATIENTS POA AND CONSENT WAS GIVEN IF NEEDED FOR CARDIOVERSION. PATIENTS BLOOD PRESSURE IMPROVED TO 100'S SYSTOLIC X3 PRESSURES. PER MD GAVE BOLUS OF DILTIAZEM. PATIENTS HR IMPROVED FROM 180'S TO 90'S A.FIB WITH 15MG BOLUS. DILTIAZEM GTT STATED PER MD HARGROVE AT THIS TIME.
--- NOTE | 2023-03-30 14:56 | OR ---
[facility] [address], [place] [address] Signed DATE OF OPERATION: 03/30/2023 SURGEON: Scotty Kumar MD PREOPERATIVE DIAGNOSIS: Stroke with esophageal dysphagia. POSTOPERATIVE DIAGNOSES: 1. Stroke with esophageal dysphagia. 2. Large hiatal hernia. PROCEDURE: EGD with placement of 20-Swedish PEG tube. ESTIMATED BLOOD LOSS: None. INDICATIONS: Ana is an 87-year-old female, who presented to the hospital with a stroke. She has been on the medical service. It has affected right side of her face and she has dysarthria and esophageal dysphagia. After several days, she and the family decided they want PEG tube placement for ongoing treatment and nutritional support. I met with Ana and we went over that together and she was able to confirm understanding. I did call her niece, Zoya Wells who was in agreement. They understand the nature of the PEG tube and the upper endoscopy. There is risk including, but not limited to bleeding, infection, scarring, change in contour of the skin, damage to bowel, perforation requiring surgery, and other unforeseen comorbidities. They had expressed understanding wished to proceed. DESCRIPTION OF PROCEDURE: Ana was taken into our endoscopy suite and placed in the supine semi-recumbent position. She was given monitored anesthesia care with propofol infusion per our nurse tool polishing machine operator. A bite block was utilized for the case. The upper abdomen was prepped and draped in the usual sterile fashion. We passed the adult gastroscope down the esophagus through a [id number] hiatal hernia and into the midportion of the stomach and down to the antrum. We went out into the pyloric bulb and thus far out of the duodenum as the scope would reach. There was no obstruction. She has moderate gastroduodenitis. The scope was brought back and in retroflexion we can see the moderate to large hiatal hernia. We went below the diaphragmatic crura and we could see our light just lateral to her umbilicus in the left upper quadrant. That area was prepped and draped in usual Electronically Signed By: SCOTTY KUMAR MD 03/30/23 1456 PATIENT NAME: ANA RANGEL OPERATIVE REPORT DATE OF : 35 REPORT #: [id number] PHYSICIAN: SCOTTY KUMAR MD PCP: YOKO ANGLIN MD REPORT IS CONFIDENTIAL AND NOT TO BE RELEASED WITHOUT AUTHORIZATION [facility] [address] [place], [place] [address] Signed sterile fashion. We injected local anesthetic and made a small humberto. The needle was able to be inserted into the stomach without difficulty. The wire was inserted and we brought the snare back down through the scope, grabbed the wire and brought it out through the oropharynx. A well lubricated 20-Swedish PEG tube was placed over the wire and brought down through the oropharynx and out the abdominal wall. It measured out to 3 cm on the abdominal wall. We put the bolster on the PEG tube. We then put the scope back down and just rechecked everything to make sure it was satisfactory. We took pictures throughout for photodocumentation. We cut the PEG tube to length and put on the valve on the end of the PEG tube. After this, dry gauze was placed underneath. She was then transferred into the recovery room in stable condition. Scotty Kumar MD ALB/MODL /[id number] cc: MD Yoko Baum MD Copies: SCOTTY KUMAR MD, KEVIN R MD ~ Electronically Signed By: SCOTTY KUMAR MD 03/30/23 1456 PATIENT NAME: ANA RANGEL OPERATIVE REPORT DATE OF : 35 REPORT #: [id number] PHYSICIAN: SCOTTY KUMAR MD PCP: YOKO ANGLIN MD REPORT IS CONFIDENTIAL AND NOT TO BE RELEASED WITHOUT AUTHORIZATION
--- NOTE | 2023-03-30 15:08 | NUR ---
PATIENT NOW ON DILTIAZEM GTT AT 15MLS/HR, BOLUS STOPPED, AND PHENELYEPHRINE GTT DECREASED AND WILL TITRATE OFF PER MD HARGROVE. PATIENTS POA INTHE ROOM AND UPDATED BY RN AND MD. PATIENT NOW RESTING IN BED ON THE MONITOR.
--- NOTE | 2023-03-30 15:29 | NUR ---
CHANGED WARM BLANKETS AT THIS TIME, PATIENTS DAUGHTER KEYANA IS AT BEDSIDE. NO NEW CONCERNS AT THIS TIME
--- NOTE | 2023-03-30 16:12 | NUR ---
03/30/23 1612 Lindsey Manzano 1316- PT ARRIVES TO PACU, SEMI BENTLEY POSITION. O2 AT 3L PER NC, PT NON REACTIVE TO STIMULUS. MONITORS APPLIED, NOTED TACHYCARDIA. BP CYCLING, CHANGED PT TO 5 LEAD COOKING CHEF AND CALLED FOR EKG. 1318- BP LOW AT 58/37, GPS FIELD DATA COLLECTOR TO GET MEDICATION TO ASSIST BP. 2ND RN ASSISTING, FLUIDS WIDE OPEN AND HUNG HIGH FOR GRAVITY. ASSISTING PT WITH AIRWAY, HEAD OF BED FLATTENED. CONTINUE TO MONITOR PT. REMAINS NON REACTIVE AT THIS TIME. 1320- LR CONTINUES TO INFUSE, 2ND IV 18 G STARTED TO RAC. PT NON REACTIVE. HR REMAINS 140-190 ON MONITOR. GPS FIELD DATA COLLECTOR REMAINS AT BEDSIDE FOR BP SUPPORT. DR KUMAR IN PACU, AWARE OF PT CONDITION. ABD ASSESSED, DRESSING IN PLACE, NO DRAINAGE, ABD SOFT. 1325- PT CONTINUES TO BE MEDICATED BY GIO GPS FIELD DATA COLLECTOR AT BEDSIDE, CONTINUE TO MONITOR. PT MAINTAINING OWN AIRWAY. REACTS TO PAINFUL STIMULI WITH A MOAN BUT DOES NOT OPEN EYES. PT NON VERBAL AT BASELINE. 1330- DECISION TO BRING DR MCLAIN TO PACU TO ASSESS PT. CODE CART MOVED TO BED. MEDICATIONS FOR BP SUPPORT CONTINUED BY GPS FIELD DATA COLLECTOR. DISCUSSION FOR CARDIOVERSION FOR UNSTABLE A-FIB WITH RVR, WILL WAIT TO DISCUSS WITH DR MCLAIN. 1335- DR MCLAIN AT BEDSIDE. PT TO BE MOVED TO ICU DUE TO NEW ONSET A-FIB WITH RVR. PLAN OF CARE DISCUSSED TO CONTINUE MEDICATIONS FOR SUPPORT AND RATE CONTROL. 1340- PT MEDICATED WITH 5 MG LOPRESSOR IV WITH NO CHANGE IN RATE. PT TO BE TRANSPORTED TO ICU. 1345- PT TO ROOM 128 VIA BED, BP ON ARRIVAL TO ROOM 85/61, HR 150. 1ST LITER LR COMPLETE, 2ND LITER STARTED AT THIS TIME. ALL MONITORS APPLIED IN ICU, REPORT ON PT STATUS AND PROCEDURE GIVEN TO DANIELLE LOZADA. PEREZ CATHETER IN PLACE, FLUIDS SWITCHED TO ICU ORDERS. CARE OF PT TURNED OVER AT THIS TIME.
--- NOTE | 2023-03-30 17:00 | NUR ---
PATIENT HAS FAMILY AND FRIENDS IN THE ROOM AT HER BEDSIDE. SEE FLOWSHEET FOR TITRATION OF MEDICATIONS. MD HENDERSON AWARE OF ORDERS FOR LABS ONLY IN THE AM. NO OTHER ORDERS AT THIS TIME.
--- NOTE | 2023-03-30 18:01 | NUR ---
PATIENT BEDDING CHANGED AND PATIENT REPOSITIONED FOR COMFORT. PATIENT SKIN ASSESSMENT COMPLETED WITH 2 RNS. DISCUSSED PLAN OF CARE WITH MD. PATIENT ON DILTIAZEM GTT AT 20MLS/HR WITH BP 104 SYSTOLIC AND HR 100-120'S. NEW ORDERS FOR 1 BOLUS PER MD. ALSO UPDATED MD THAT PER REPORT PATIENT HAS NOT HAD A BM SINCE ADMISSION.
--- NOTE | 2023-03-30 20:26 | NUR ---
RECEIVED REPORT FROM AM RN. BEDSIDE REPORT AND SAFETY CHECK COMPLETED. PT RESTING, EYES CLOSED. IV FLUIDS INFUSING AND DOSING/MEDICATION VERIFIED FOR ACCURACY. I/O CHARTED. BED IS LOCKED AND LOW. CALL LIGHT AVAILABLE. DURING ASSESSMENT: PT RESPONDS TO VOICE AND FOLLWS COMMANDS TO OPEN EYES AND SQUEEZE MY HANDS. SHE CAN FOLLOW COMMAND TO WIGGLE TOES. SHE CAN DO LT FOOT BUT NOT RT. SHE CAN NOT HOLD ARMS OR LEGS IN AIR. SHE CAN SMILE WHEN ASKED TO AND SHE HAS A LT SIDE DROOP. HER MOUTH IS DRY AND RESPONDED YES TO QUESTION IF SHE WOULD LIKE THE MOUTH SPRAY. SHE IS ABLE TO STICK OUT HER TONGUE AND MOVE FROM LT TO RT. SHE IS ABLE TO SWALLOW WITH MINOR DIFFICULTY BUT HAD NO GAG OR COUGH. FACIAL GRIMACES ONLY. SHE ANSWERS MY QUESTIONS WITH YES/NO OR USES ONE WORD ALL OTHER ASSESMSENT PER CHARTED.
--- NOTE | 2023-03-30 20:48 | EKG ---
[facility] [address] [facility] [place] [address] Signed Atrial fibrillation with rapid ventricular response Low voltage QRS ST \T\ T wave abnormality, consider anterior ischemia Abnormal ECG When compared with ECG of 28-MAR-2023 12:59, Atrial fibrillation is now present Confirmed by Yoko Henderson MD () on 03/30/2023 8:47:59 PM Electronically Signed By: YOKO HENDERSON MD 03/30/232047 PATIENT NAME: DESEAN RANGEL Electrocardiogram DATE OF : 35 PHYSICIAN: YOKO HENDERSON MD REPORT #: [id number] REPORT IS CONFIDENTIAL AND NOT TO BE RELEASED WITHOUT AUTHORIZATION
--- NOTE | 2023-03-30 20:49 | EKG ---
[facility] [address] [place] [place] [address] Signed Atrial fibrillation Low voltage QRS Nonspecific ST abnormality Abnormal ECG When compared with ECG of 30-MAR-2023 13:19, Vent. rate has decreased Confirmed by Yoko Henderson MD () on 03/30/2023 8:49:22 PM Electronically Signed By: YOKO HENDERSON MD 03/30/232048 PATIENT NAME: RANGELDESEAN Electrocardiogram DATE OF : 35 PHYSICIAN: YOKO HNEDERSON MD REPORT #: [id number] REPORT IS CONFIDENTIAL AND NOT TO BE RELEASED WITHOUT AUTHORIZATION
--- NOTE | 2023-03-30 21:32 | NUR ---
UPDATE GIVEN TO ; ORDERS PLACED FOR LABS BY
--- NOTE | 2023-03-30 21:34 | NUR ---
PT O2 98% ON 2L. TITRATED DOWN TO 1L, REMAINS STABLE AT 98%. WILL CONTINUE TO MONITOR AND TITRATE TO PT BASELINE OF RA.
[2023-03-30 21:43] LABS: ANION GAP 8.9 (7-21); BUN/CREATININE RATIO 8.95 (6.0-28.6); CALCIUM 8.7 mg/dL (8.5-10.1); CREATININE, SERUM 0.67 mg/dL (0.55-1.02); MAGNESIUM 1.6 mg/dL (1.8-2.4); POTASSIUM 3.9 mmol/L (3.5-5.1)
--- NOTE | 2023-03-30 23:10 | NUR ---
PT RESTING WITH EYES CLOSED. RESPONDS TO VOICE AND NODS OR ANSWERS YES/NO TO QUESTIONS. ALERT TO SELF AND PLACE. REPOSITIONED FOR COMFORT, MOUTH CARE COMPLETED, PEREZ CARE DONE AND DRAINING TO GRAVITY. NEW ORDER FOR IV MAGNESIUM INFUSING. TITRATED O2 TO OFF, PT SPO2 IS 98% ON RA. CALL LIGHT AVAILABLE, BED LOCKED AND IN LOW POSITION FOR SAFETY.
[2023-03-31] VITALS (25 sets, daily range): BP systolic 88–176; BP diastolic 44–72
--- NOTE | 2023-03-31 01:30 | NUR ---
PT RESTING, EYES CLOSED, RESPONDS TO VOICE. SMILES, A/O TO SELF AND PLACE. HAS LEFT SIDE FACIAL DROOP. MOVING LT SIDE LIMBS OFTEN, SLIGHT MOVEMENT NOTED TO RT SIDE, PT HAS MOVED HERSELF IN BED TO A DIFFERENT POSITION. REPOSITIONED HER. MOUTH CARE COMPLETED. PT DENIED OFFER OF MOUTH SPRAY. PEREZ DRAINING TO GRAVITY. PT ON RA, VSS. IV FLUIDS INFUSING AND TITRATING DILTIAZEM AT THIS TIME. CALL LIGHT AVAILABLE AND BED LOCKED IN LOW POSITION FOR SAFETY.
--- NOTE | 2023-03-31 03:00 | NUR ---
PT WAS IN AFIB WITH DILTIZEM INFUSING AT 10ML/HR. PT CONVERTED AT 0300. DILTIAZEM STOPPED. PT BP AND HR STABLE.
--- NOTE | 2023-03-31 04:19 | NUR ---
PT RESTING WITH EYES CLOSED. HAS MADE SLIGHT CHANGES OF POSITION IN BED. REPOSITIONED. PT IS A/O TO SELF AND PLACE. IS DROWSY BUT WAKES TO VOICE. ANSWERS YES/NO QUESTIONS. CONTINUES WITH EXPRESSIVE APHASIA. URINE OUTPUT DOCUMENTED. HAS DECREASED BUT STILL ACCEPTABLE. PT VSS, CONTINUES IN SR. ALL OTHER PER ASSESSMENT
[2023-03-31 05:31] LABS: BASOPHILS 0.5 % (0-2); EOSINOPHILS 0.8 % (0-6); HEMATOCRIT 35.5 % (35.0-50.0); HEMOGLOBIN 12.1 g/dL (12.0-18.0); LYMPHOCYTES 11.2 % (24-44); MCH 31.2 (27-36); MCV 91.7 fl (81-99); MONOCYTES 9.5 % (0-12); PLATELET COUNT 272 K/uL (140-440); RBC 3.87 M/ul (4.3-5.7); RDW 13.7 (10.5-15.0)
[2023-03-31 05:37] LABS: BUN/CREATININE RATIO 8.82 (6.0-28.6); CALCIUM 8.8 mg/dL (8.5-10.1); CREATININE, SERUM 0.68 mg/dL (0.55-1.02); MAGNESIUM 2.2 mg/dL (1.8-2.4)
--- NOTE | 2023-03-31 06:51 | NUR ---
PT RESTING COMFORTABLY, WAKES VERY EASILY TO VOICE AND IS MORE ALERT AND ORIENTED. SHE IS INTERACTING MORE. SHE REMEMBERS SHE IS IN THE HOSPITAL, HER NAME AND NOW REMEMBERS HER SURGERY FOR THE PEG TUBE. MORPHINE WAS GIVEN X1 AND HAS BEEN EFFECTIVE. IV FLUIDS INFUSING PER ORDERS. VSS, PT ON RA. UOP IS >50ML/HR. ABDOMEN PEG TUBE SITE IS CD, DRESSING IS CDI. PT REMAINS IN SR.
--- NOTE | 2023-03-31 07:30 | NUR ---
REPORT RECEIVED FROM DEBORAH LOZADA. PT IS RESTING IN BED WITH EYES CLOSED, RESP EVEN AND UNLABORED, SPO2 945 ON ROOM AIR, HR 70-80'S SINUS RHYTHM.
--- NOTE | 2023-03-31 11:30 | NUR ---
IN TO DO PT ASSESSMENT, PT REMAINS MOSTLY SLEEPY. DOES STATE HER BACK IS HURTING, ASSISTED WITH REPOSITIONING TO RELIEVE PAIN, PT STATES SHE IS MORE COMFORTABLE, BACK TO SLEEP. ORAL CARE DONE.
--- NOTE | 2023-03-31 13:00 | NUR ---
REPORT GIVEN TO OSEI RN AND PT TRANSFERRED TO MED SURG FLOOR.
--- NOTE | 2023-03-31 13:00 | NUR ---
PT TRANSFERED TO ROOM 121 VIA BED. PT AWAKENS TO VOICE AND TOUCH, DOES NOT FOLLOW COMMANDS. BP 172/61, HR 86, O2 96% ON RA, TEMP 98.5. PEREZ DRAINING CLEAR YELLOW URINE. PEG TUBE CLAMPED, INSERTION SITE AND DRESSING CDI. IV FLUSHED, PATENT. CALL LIGHT IN REACH. PT IN ROOM CLOSE TO NURSES STATION.
--- NOTE | 2023-03-31 14:42 | NUR ---
BOLUS TUBE FEED INITIATED. PRE FEED RESIDUAL 0ML, SMALL AMOUNT OF GASTRIC CONTENTS IN TUBE, AUSCULTATED PLACEMENT. 1 CARTON JEVITY 1.2 GIVEN (237 ML), FOLLOWED BY 150 FREE WATER FLUSH. PT NOW SITTING IN BED WITH HOB ELEVATED >30 DEGREE.
--- NOTE | 2023-03-31 14:52 | NUR ---
ORAL CARE PROVIDED, PT TOELRATED WELL. AWAKE AND REPOSITIONED, PT FOLLOWING SOME COMMANDS ANSWERED SIMPLE QUESTIONS. PT POSITIONED IN UPRIGHT POSITIONS, TUBE FEED AND FLUSH PROVIDED PER ORDER - SEE CHART. PT ORIENTED TO CALL LIGHT. CALL LIGHT WITHIN REACH. FAMILY AT BEDSIDE.
--- NOTE | 2023-03-31 16:06 | NUR ---
PT RESTING QUIETLY WITH EYES CLOSED, RESPIRATIONS EVEN AND UNLABORED. CALL LIGHT IN REACH.
--- NOTE | 2023-03-31 18:50 | NUR ---
PT WITH GASTRIC RESIDUAL OF 200 ML, CALL PLEACED TO REESE PALOMINO AND DISCUSSED RESIDUAL AFTER FIRST BOLUS FEEDING. REESE RECOMMENDS HOLDING 1700 FEED, REASSESS AT 2000. ADDITIONALLY SHE RECOMMENDS THAT IF RESIDUAL GREATER THAN 300 TO WAIT 1 HR AND REASSESS, TO CONTINUE WITH FEEDING IF RESIDUAL LESS THAN 200ML.
--- NOTE | 2023-03-31 19:31 | NUR ---
REPORT RECEIVED FROM DAY SHIFT RN. PATIENT RESTING IN BED WITH EYES CLOSED. RESPIRATIONS EVEN AND UNLABORED. CALL LIGHT IN REACH.
--- NOTE | 2023-03-31 20:29 | NUR ---
CONTINUES TO DO WELL OFF O2. RT TAKING OFF SERVICE. PLEASE CALL WITH CONCERNS OR O2 USE.
--- NOTE | 2023-04-01 | NUR ---
PATIENT RESTING IN BED ON BACK WITH EYES CLOSED. RESPIRATIONS EVEN AND UNLABORED. CALL LIGHT IN REACH.
--- NOTE | 2023-04-01 00:04 | NUR ---
PATIENT REPOSITIONED IN BED. LEFT HIP PILLOW REMOVED. RIGHT HIP PILLOW STILL IN PLACE.
--- NOTE | 2023-04-01 01:58 | NUR ---
PATIENT RESTING IN BED WITH EYES CLOSED. RESPIRATIONS EVEN AND UNLABORED. PATIENT REPOSITIONED IN BED. CALL LIGHT IN REACH.
--- NOTE | 2023-04-01 04:28 | NUR ---
PATIENT RESTING IN BED ON BACK WITH EYES CLOSED. RESPIRATIONS EVEN AND UNLABORED. PATIENT REPOSITIONED IN BED WITH PILLOWS UNDER BILAT HIPS. CALL LIGHT IN REACH.
[2023-04-01 05:14] VITALS: BP 152/86
--- NOTE | 2023-04-01 05:23 | NUR ---
PATIENT RESTING IN BED. VS AND I&Os OBTAINED AND RECORDED. ASSESSMENT COMPLETE. PATIENT ORIENTED TO NAME AND KNOWS SHE IS IN THE HOSPITAL. PATIENT HAS NO FURTHER NEEDS. ORAL CARE PROVIDED AND CHAPSTICK APPLIED. CALL LIGHT IN REACH.
[2023-04-01 05:29] LABS: BASOPHILS 0.6 % (0-2); EOSINOPHILS 1.7 % (0-6); HEMATOCRIT 37.7 % (35.0-50.0); HEMOGLOBIN 12.8 g/dL (12.0-18.0); LYMPHOCYTES 9.6 % (24-44); MCH 30.9 (27-36); MCHC 33.9 g/dl (30-36); MCV 91.2 fl (81-99); NEUTROPHILS 80.1 % (39-80); PLATELET COUNT 323 K/uL (140-440); RBC 4.13 M/ul (4.3-5.7); RDW 13.7 (10.5-15.0)
[2023-04-01 05:41] LABS: ANION GAP 10.1 (7-21); BUN/CREATININE RATIO 8.57 (6.0-28.6); CALCIUM 8.9 mg/dL (8.5-10.1); CREATININE, SERUM 0.7 mg/dL (0.55-1.02); MAGNESIUM 1.9 mg/dL (1.8-2.4); POTASSIUM 4.1 mmol/L (3.5-5.1)
--- NOTE | 2023-04-01 05:52 | NUR ---
PATIENT REPOSITIONED IN BED WITH PILLOW PLACED UNDER LEFT HIP. RESPIRATIONS EVEN AND UNLABORED. CALL LIGHT IN REACH.
--- NOTE | 2023-04-01 07:25 | NUR ---
REPORT RECEIVED FROM FURNITURE UPHOLSTERY MECHANIC RN SUHAS. PATIENT IS LYING IN BED WITH EYES CLOSED. RESPIRATIONS ARE EVEN AND UNLABORED. CALL LIGHT AND PERSONAL BELONGINGS ARE WITHIN REACH.
[2023-04-01 08:46] VITALS: BP 190/69
--- NOTE | 2023-04-01 09:30 | NUR ---
YAMILEX FROM DR. DE SOUZA TO SALINE LOCK PATIENT IF SHE TOLERATED FEEDINGS TODAY 04/01/23. NURSE NOTIFY ORDER PLACED AT THIS TIME.
--- NOTE | 2023-04-01 09:30 | NUR ---
PATIENT 0900 MEDICATIONS ADMINISTERED PER THE EMAR. JEVITY 1.2 FEEDING COMPLETE. NO RESIDUAL NOTED PRIOR. PATIENT FULL ASSESSMENT COMPLETE AND DOCUMENTED IN THE CHART. PATIENT ORIENTED TO SELF ONLY AT THIS TIME. PATIENT WITH WEAKNESS PRESENT ON THE RIGHT AND LEFT SIDE IN THE UPPER AND LOWER EXTREMITITES. PATIENT ON ROOM AIR AND LUNG SOUNDS ARE CLEAR BUT DIMINISHED IN THE BASES BILATERALLY. HEART SOUNDS ARE NORMAL S1 AND S2. BOWEL TONES ARE ACTIVE IN THE LLQ AND HYPOACTIVE IN THE REMAINING 3 QUADRANTS. PATIENT WITH SCATTERED BRUISING. IV SITE IS CLEAN, DRY, AND INTACT WITH CONTINUOUS FLUIDS. PATIENT REPOSITIONED IN BED AND FLOATING ON PILLOWS. PATIENT WITH SCDS IN PLACE. PATIENT STATED NO NEEDS AT THIS TIME. CALL LIGHT WITHIN REACH.
--- NOTE | 2023-04-01 10:51 | NUR ---
MD ROUNDING WITH PATIENT. MD NOTIFIED OF PATIENTS BLOOD PRESSURE THIS MORNING PRIOR TO BLOOD PRESSURE MEDICATIONS.
--- NOTE | 2023-04-01 12:46 | NUR ---
PATIENT WITH 12 ML RESIDUAL PRIOR TO FEEDING. JEVITY FEEDING AND FREE WATER COMPLETE. ORAL CARE PROVIDED. PERZE EMPTIED. TWO FAMILY MEMBERS ARE AT THE BEDSIDE. PATIENT AND FAMILY STATED NO FURTHER NEEDS AT THIS TIME. CALL LIGHT AND PERSONAL BELONGINGS ARE WITHIN REACH.
[2023-04-01 14:38] VITALS: BP 189/72
--- NOTE | 2023-04-01 14:40 | NUR ---
PATIENT VITALS COMPLETE. PRIMARY NURSE IS AWARE OF VITALS. REPOSITIONED TO RIGHT SIDE WITH 2 PILLOWS
--- NOTE | 2023-04-01 14:43 | NUR ---
NOTIFIED OF THE PATIENTS HIGH BLOOD PRESSURE AND HR. NO NEW ORDERS AT THIS TIME. CALL ENDED.
--- NOTE | 2023-04-01 16:04 | NUR ---
PATIENT LYING IN BED WITH EYES CLOSED AND RESPIRATIONS EVEN AND UNLABORED UPON ENTERING THE ROOM. PATIENT ORIENTED TO SELF AT THIS TIME. PATIENT ON ROOM AIR. PEREZ CATHETER IN PLACE AND DRAINING LIGHT YELLOW URINE. PATIENT WITH UPPER EXTREMITY WEAKNESS ON THE LEFT SIDE AND CONTROLLED ON THE RIGHT UPPER EXTREMITY. BOWEL TONES ARE ACTIVE IN ALL FOUR QUADRANTS. IV WITH CONTINUOUS FLUIDS. IV DRESSING IS CLEAN, DRY, AND INTACT. PATIENT STATED NO FURTHER NEEDS AT THIS TIME. CALL LIGHT AND PERSONAL BELONGINGS ARE WITHIN REACH.
--- NOTE | 2023-04-01 17:24 | NUR ---
MONY CARE AND PEREZ CARE COMPLETE. 1700 MEDICATION ADMINISTERED PER THE EMAR. 150 ML WATER USED TO ADMINISTER MEDICATION AND FLUSH. 250 ML RESIDUAL INDICATING TO HOLD THE FOURTH FEEDING. PATIENT TOLERATED WELL WITH NO PAIN. PATIENT STATED NO FURTHER NEEDS AT THIS TIME. CALL LIGHT AND PERSONAL BELONGINGS ARE WITHIN REACH.
[2023-04-01 17:56] VITALS: BP 193/69
--- NOTE | 2023-04-01 19:15 | NUR ---
REPORT RECEIVED FROM DAY SHIFT RN. PATIENT RESTING IN BED WITH EYES CLOSED. RESPIRATIONS EVEN AND UNLABORED. CALL LIGHT IN REACH.
[2023-04-01 19:55] VITALS: BP 153/79
--- NOTE | 2023-04-01 20:39 | NUR ---
PATIENT RESTING IN BED WITH EYES CLOSED. PATIENT INCONTINENT OF STOOL. NEW BREIF, LUX, AND DRAW SHEET PLACED AFTER MONY CARE PROVIDED. PEREZ CATH CARE PROVIDED. BED BATH COMPLETE. NEW GOWN PROVIDED. 2 WARM BLANKETS PROVIDED. TUBE FEEDING ADMINISTERED. VS AND I&Os OBTAINED AND RECORDED. ORAL CARE PORVIDED AND CHAPSTICK APPLIED. SCDs IN PLACE. PATIENT FLOATED WITH 2 PILLOWS UNDER BILAT HIPS. ASSESSMENT COMPLETE. PATIENT ORIENTED TO SELF. PATIENT HAS NO FURTHER NEEDS. CALL LIGHT IN REACH.
--- NOTE | 2023-04-01 20:41 | NUR ---
THIS RN STARTED NEW IV. PATIENT TOLERATED ACTIVITY WELL. IV INFUSING PER ORDER.
--- NOTE | 2023-04-01 22:18 | NUR ---
PATIENT IN BED RESTING ON BACK WITH EYES CLOSED. RESPIRATIONS EVEN AND UNLABORED. CALL LIGHT IN REACH.
--- NOTE | 2023-04-01 22:56 | NUR ---
PATIENT RESTING IN BED WITH EYES CLOSED. RESPIRATIONS EVEN AND UNLABORED. PATIENT REPOSITIONED IN BED WITH PILLOW UNDER LEFT HIP. CALL LIGHT IN REACH.
--- NOTE | 2023-04-02 00:58 | NUR ---
ROUNDING ON PATIENT. PATIENT REPOSITIONED IN BED BY THIS RN. RESPIRATIONS EVEN AND UNLABORED. CALL LIGHT IN REACH.
--- NOTE | 2023-04-02 03:16 | NUR ---
PATIENT RESTING IN BED ON BACK WITH EYES CLOSED. RESPIRATIONS EVEN AND UNLABORED. PATIENT REPOSITIONED IN BED. PATIENT FLOATED WITH 2 PILLOWS UNDER BILAT HIPS. CALL LIGHT IN REACH.
--- NOTE | 2023-04-02 04:37 | NUR ---
PATIENT RESTING IN BED WITH EYES CLOSED. RESPIRATIONS EVEN AND UNLABORED. CHAPSTICK APPLIED TO LIPS. PATIENT REPOSTIONED IN BED. CALL LIGHT IN REACH.
[2023-04-02 05:20] VITALS: BP 120/68
[2023-04-02 05:37] LABS: BASOPHILS 0.6 % (0-2); EOSINOPHILS 1.3 % (0-6); HEMATOCRIT 37.8 % (35.0-50.0); HEMOGLOBIN 12.6 g/dL (12.0-18.0); LYMPHOCYTES 11.6 % (24-44); MCH 30.6 (27-36); MCHC 33.5 g/dl (30-36); MCV 91.4 fl (81-99); MONOCYTES 7.5 % (0-12); PLATELET COUNT 366 K/uL (140-440); RBC 4.13 M/ul (4.3-5.7); RDW 13.8 (10.5-15.0)
--- NOTE | 2023-04-02 05:45 | NUR ---
PATIENT RESTING IN BED WITH EYES CLOSED. PATIENT INCONTINENT OF STOOL. BREIF AND LUX REPLACED AFTER MONY CARE AND CATHETER CARE PROVIDED. PATIENT REPOSITIONED IN BED ON RIGHT SIDE OF BODY WITH 2 PILLOWS UNDER LEFT SIDE. HEEL PROTECTORS AND SCDs IN PLACE. VS AND I&Os OBTAINED AND RECORDED. ASSESSMENT COMPLETE. PATIENT ORIENTED TO SELF. PATIENT REPORTS NO PAIN. FACE CLEANED WITH WASH CLOTH AND CHAPSTICK PLACED. PATIENT REPORTS NO FURTHER NEEDS. CALL LIGHT IN REACH.
[2023-04-02 06:04] LABS: BUN/CREATININE RATIO 13.51 (6.0-28.6); CALCIUM 9.1 mg/dL (8.5-10.1); CREATININE, SERUM 0.74 mg/dL (0.55-1.02); MAGNESIUM 1.8 mg/dL (1.8-2.4)
--- NOTE | 2023-04-02 07:04 | NUR ---
REPORT RECEIVED FROM DOWEL INSPECTOR RN [place]. PATIENT RESPOSITIONED IN THE BED. PATIENT IS NOW RESTING WITH EYES CLOSED AND RESPIRATIONS ARE EVEN AND UNLABORED. PATIENT CALL LIGHT AND PERSONAL BELONGINGS ARE WITHIN REACH.
[2023-04-02 09:42] VITALS: BP 150/73
--- NOTE | 2023-04-02 09:58 | NUR ---
PATIENT 0900 MEDICATIONS ADMINISTERED PER THE EMAR. NO RESIDUAL IN PEG TUBE. FIRST FEEDING COMPLETE. PATIENT TOLERATED WELL AND DID NOT APPEAR UNCOMFORTABLE. TUBE FLUSHED WITH 180 ML FREE WATER. PATIENT ON ROOM AIR AND LUNG SOUNDS ARE CLEAR BUT DIMINISHED IN THE BASES BILATERALLY. PATIENT HR IS TACHYCARDIC AND HAS BEEN BETWEEN 100-110. BOWEL TONES ARE ACTIVE IN ALL FOUR QUADRANTS. RADIAL PULSES ARE STRONG BILATERALLY. SKIN ASSESSMENT COMPLETE AND DOCUMENTED IN THE CHART. ALEVYN ON THE RIGHT HIP IS STILL INTACT AND NO DRAINAGE NOTED. PATIENT STATED NO PAIN AT THIS TIME. ORAL, PEREZ, AND MONY CARE COMPLETE. PATIENT TOLERATED WELL. PATIENT REPOSITIONED AND IS ON HER LEFT SIDE AT THIS TIME. PATIENT STATED NO FURTHER NEEDS. CALL LIGHT AND PERSONAL BELONGINGS ARE WITHIN REACH.
--- NOTE | 2023-04-02 12:11 | NUR ---
PATIENT JEVITY FEEDING COMPLETE. FREE WATER FLUSH FOLLLOWED. PATIENT TOLERATED WELL. PRIOR TO TUBE FEEDING RESIDUAL WAS 45 ML. PATIENT STATED NO PAIN WHEN ASKED. PATIENT STATED NO FURTHER NEEDS AT THIS TIME. CALL LIGHT AND PERSONAL BELONGINGS ARE WITHIN REACH.
--- NOTE | 2023-04-02 12:28 | NUR ---
PATIENT WORKING WITH PHYSICAL THERAPY. PATIENT SITTING ON THE EDGE OF THE BED AND SAID SHE WAS DIZZY. BLOOD PRESSURE IN THE RIGHT ARM WAS 131/86. PATIENT CONTINUED TO WORK WITH PT. CALL LIGHT IS WITHIN REACH.
[2023-04-02 13:35] VITALS: BP 151/70
--- NOTE | 2023-04-02 15:18 | NUR ---
PATIENT RESIDUAL WAS 125 ML PER HOUR. JEVITY 1.2 FEEDING ADMINISTERED. FREE WATER FLUSH ADMINISTERED. PATIENT TOLERATED FEEDING WELL. PATIENT STATED SHE WAS IN NO PAIN WHEN ASKED. BOWEL TONES ARE ACTIVE IN ALL FOUR QUADRANTS. GAUZE AROUND PEG TUBE IS CLEAN WITH NO NEW DRAINAGE NOTED. PATIENT IS ORIENTED TO SELF AND DAY OF THE WEEK. PATIENT IS NOT ORIENT TO PLACE AND EVENT. PATIENT IS WEAK IN ALL EXTREMITITES AND SENSATION INTACT. PATIENT SITTING WITH THE HEAD OF THE BED RAISED. PATIENT STATED NO FURTHER NEEDS AT THIS TIME. CALL LIGHT AND PERSONAL BELONGINGS ARE WITHIN REACH.
--- NOTE | 2023-04-02 16:03 | NUR ---
PATIENT HAD BOWEL MOVEMENT. PATIENT WIPED WITH NEW BRIEF IN PLACE. BEDDING CHANGED AT THIS TIME WELL. PATIENT REPOSITIONED AND IS NOW RESTING ON HER RIGHT SIDE. IV FLUIDS CONTINUES TO INFUSE. ORAL CARE COMPLETE. PATIENT STATED NO FURTHER NEEDS AT THIS TIME. CALL LIGHT AND PERSONAL BELONGINGS ARE WITHIN REACH.
--- NOTE | 2023-04-02 17:03 | NUR ---
1700 ATOROVASTATIN ADMINISTERED PER THE EMAR. RESIDUAL PRIOR TO JEVITY 1.2 FEEDING WAS 175 ML/HR. FEEDING ADMINISTERED PER THE ORDER WITH FREE WATER FLUSH AFTERWARDS. PATIENT TOLERATED WELL WITH NO COMPLAINTS OF PAIN. PATIENT STATED NO FURTHER NEEDS AT THIS TIME. CALL LIGHT AND PERSONAL BELONGINGS ARE WITHIN REACH.
[2023-04-02 18:05] VITALS: BP 145/64
--- NOTE | 2023-04-02 18:20 | NUR ---
PATIENT REPOSITIONED IN BED. PATIENT TOLERATED WELL. PATIENT CALL LIGHT IS WITHIN REACH.
--- NOTE | 2023-04-02 18:20 | NUR ---
IN TO DO VITALS AND I&O'S. PATIENT REPOSITIONED INTO A FLOATING POSITION WITH PILLOS UNDER BOTH HIPS. CALL LIGHT IN REACH. NO FURTHER NEEDS AT THIS TIME.
--- NOTE | 2023-04-02 19:22 | NUR ---
REPORT RECEIVED FROM DAY SHIFT RN. PT LYING IN BED RESTING WITH EYES CLOSED. RESPIRATIONS EVEN. CALL LIGHT IN REACH. WHITE BOARD UPDATED.
[2023-04-02 19:44] VITALS: BP 110/63
--- NOTE | 2023-04-02 20:21 | NUR ---
EVENING ASSESSMENT COMPLETE. TUBE FEED HELD AT THIS TIME FOR RESIDUAL >300 ML. ABD DISTENDED. PT GRIMACE WITH LIGHT PALPITATION. BOWEL TONES ACTIVE. PT WITH LARGE AMOUNT LIQUID BM. MONY/PEREZ CARE COMPLETE. 2PA TO REPOSITION IN BED. HOB ELEVATED. PEREZ PATENT WITH SMALL AMOUNT YELLOW URINE. SCD'S AND HEEL PROTECTORS IN PLACE. ORAL CARE COMPLETE. PT ORIENTED TO SELF AT THIS TIME. ANSWERS SIMPLE QUESTIONS WITH YES/NO. NEW BAG IVF INFUSING PER ORDER. CALL LIGHT IN REACH. PT IN VIEW OF NURSES STATION.
--- NOTE | 2023-04-02 22:17 | NUR ---
TUBE FEED RESIDUAL REASSESSED >200 ML. TUBE FEEDING HELD AT THIS TIME. PT REPOSITIONED IN BED. ASSISTED WITH ORAL CARE.
--- NOTE | 2023-04-03 00:20 | NUR ---
PT REPOSITIONED WITH PILLOWS AND 2PA. PT MORE AWAKE DURING CARES, SMILING AND ANSWERING QUESTIONS WITH YES/NO. ORAL CARE DONE. FACE WASHED AND MOISTURIZER APPLIED.
--- NOTE | 2023-04-03 03:06 | NUR ---
PT RESTING IN BED WITH EYES CLOSED IN RELAXED POSITION. RESPIRATIONS EVEN AND UNLABORED. IVF INFUSING PER ORDER.
--- NOTE | 2023-04-03 04:25 | NUR ---
PT REPOSITIONED IN BED WITH PILLOWS. ORAL CARE DONE. CHAPSTICK PROVIDED. PT VERNELL WELL.
[2023-04-03 05:52] LABS: BASOPHILS 0.7 % (0-2); EOSINOPHILS 1.5 % (0-6); HEMATOCRIT 36.6 % (35.0-50.0); HEMOGLOBIN 12.2 g/dL (12.0-18.0); LYMPHOCYTES 12.5 % (24-44); MCH 30.6 (27-36); MCHC 33.2 g/dl (30-36); MCV 92.1 fl (81-99); MONOCYTES 7.5 % (0-12); NEUTROPHILS 77.8 % (39-80); PLATELET COUNT 356 K/uL (140-440); RBC 3.98 M/ul (4.3-5.7)
[2023-04-03 06:02] VITALS: BP 133/54
[2023-04-03 06:05] LABS: ALBUMIN 1.6 g/dL (3.4-5.0); ALBUMIN/GLOBULIN RATIO 0.4 (1.1-2.4); ANION GAP 10.1 (7-21); BILIRUBIN, TOTAL 0.4 ng/dL (0.2-1.0); BUN/CREATININE RATIO 15.18 (6.0-28.6); CALCIUM 9.2 mg/dL (8.5-10.1); CREATININE, SERUM 0.79 mg/dL (0.55-1.02); MAGNESIUM 1.9 mg/dL (1.8-2.4); POTASSIUM 4.1 mmol/L (3.5-5.1); PROTEIN, TOTAL 5.6 g/dL (6.4-8.2)
--- NOTE | 2023-04-03 06:39 | NUR ---
VS AND I&O OBTAINED. PEREZ PATENT WITH QS YELLOW URINE. PT INCONTINENT OF LARGE AMOUNT SOFT BM. MONY/PEREZ CARE DONE. CLEAN BRIEF IN PLACE. 2PA TO REPOSITION WITH PILLOWS. ORAL CARE COMPLETE. PT MOANS "OW OW" DURING CARES. PRN FOR PAIN ADMIN PER EMAR. PT LEFT IN RELAXED POSITION IN VIEW OF NURSES STATION.
--- NOTE | 2023-04-03 07:24 | NUR ---
HANDOFF REPORT RECIEVED FROM STITCH BONDING MACHINE TENDER RN. PT SLEEPING, RESPIRATIONS EVEN AND UNLABORED. IV FLUIDS INFUSING AT 30ML/HR.
[2023-04-03 08:25] VITALS: BP 145/73
--- NOTE | 2023-04-03 08:52 | NUR ---
PT SLEEPING, AROUSABLE TO VOICE AND GENTLE SHAKE. PT WITH GARBLED INCOMPREHENSIBLE SPEECH, ABLE TO SHAKE HER HEAD YES AND NO. PT ON ROOM AIR, LUNG SOUNDS CLEAR WITH DIMINISHED BASES. PT DENIES PAIN. PEG TUBE WITH RESIDUAL OF 0ML, MEDS AND JEVITY 1.2 FEEDING GIVEN WITH 150ML FREE WATER FLUSH, HOB ELEVATED. ORAL CARE PROVIDED WITH BIOTENE MOUTH SPRAY, CHAP STICK APPLIED. PT ASSESSED FOR INCONTINENCE, BRIEF CLEAN, PEREZ CATH IN PLACE. IV FLUIDS INFUSING AT 30ML/HR. PLAN FOR BED BATH TODAY. DISCUSSED HELD FEED WITH REESE PALOMINO, DISCUSSED PUSHING LAST FEED TO 2100 INSTEAD OF 2000 AND OK GIVEN TO ADJUST TIME APPROPRIATELY.
--- NOTE | 2023-04-03 09:22 | NUR ---
PATIENT TOLERATING BOLUS FEEDS DURING THE DAY, BUT IS HAVING HIGHER RESIDUALS AT THE 2000 FEEDING. DISCUSSED WITH NEVILLE MCDANIEL. PUSH THE 2000 FEEDING BACK TO 2200. PATIENT CANNOT LAY FLAT FOR AT LEAST 1 HOUR AFTER FEEDING TO PREVENT ASPIRATION. CONTINUE WITH JEVITY 1.2 ELIOT WITH FIBER FORMULA FOR NOW. CONTINUE 150 ML WATER FLUSHES AFTER EACH FEEDING. RD WILL CONTINUE TO MONITOR.
--- NOTE | 2023-04-03 10:54 | NUR ---
PT TURNED TO LEFT SIDE. PEREZ CARE COMPLETED, SMALL BLOOD CLOT NOTED IN PEREZ TUBING, WILL CONTINUE TO MONITOR. PT DROWSY, MOANS WHEN SHOOK.
--- NOTE | 2023-04-03 11:41 | NUR ---
TUBE FEED GASTRIC RESIDUAL 100ML, RETURNED. BOLUS FEED OF JEVITY 1.2 GIVEN WITH 150ML FREE WATER FLUSH. ORAL CARE COMPLETED, CHAPSTICK APPLIED. PT CONTINUES TO BE DROWSY, BRIEFLY OPENS EYES AND MOANS WHEN STIMULATED.
--- NOTE | 2023-04-03 11:49 | NUR ---
DISCUSSED CONCERN OF T INCREASED DROWSINESS WITH DR. HENDERSON, HE WILL PLACE NEW ORDERS.
[2023-04-03 12:32] LABS: BILIRUBIN, URINE NEGATIVE (negative); BLOOD/HGB, URINE MODERATE (Negative); KETONE, URINE NEGATIVE (Negative); LEUK ESTERASE, URINE NEGATIVE (negative); NITRITE, URINE NEGATIVE (negative)
[2023-04-03 12:52] LABS: EPITHELIAL CELLS, URINE 0 /lpf (0-1+)
[2023-04-03 12:53] LABS: BACTERIA, URINE NONE SEEN /hpf (negative); CASTS, URINE NONE SEEN \\lpf; COLLECTION TYPE, URINE CLEAN CATCH; CRYSTALS, URINE NONE SEEN (0-1+); REFLEX CULTURE, URINE No (No)
[2023-04-03 14:30] VITALS: BP 144/79
--- NOTE | 2023-04-03 14:34 | NUR ---
THIS SENIOR CONSUMER INSIGHTS CONSULTANT AND PRIMARY RN PERFORMED MONY CARE AND BRIEF CHANGE ON PT. PT REPOSITIONED ON RIGHT SIDE. PILLOW UNDER LEFT HIP. HOB ELEVATED PER NURSE REQUEST. PILLOW UNDER LEGS AND HEEL PROTECTORS IN PLACE. PT IS CURRENTLY RESTING WITH EYES CLOSED. RESPIRATIONS EQUAL AND UNLABORED. BED ALARM ON.
--- NOTE | 2023-04-03 14:34 | NUR ---
PT TAKEN TO CT WITH KATHLEEN AND RN, PT NOW BACK TO ROOM. GASTRIC RESIDUAL 150 ML, GIVEN SCHEDULED BOLUS FEED AND FREE WATER. PT A LITTLE MORE ALERT, ABLE TO STATE HER NAME AND YES TO PAIN. GIVEN TYLENOL SUPPOSITORY FOR PAIN. ORAL CARE COMPLETED AND CHAP STICK APPLIED. CARO KNUTSON) CALLED AND PROVIDED WITH UPDATE, INCLDUING UA, CHEST XRAY AND REPEAT HEAD CT. BENNY GUTIERREZ AT BEDSIDE AND ALSO UPDATED.
--- NOTE | 2023-04-03 15:34 | NUR ---
Pt bedbath complete with 2 person assist. Nasreen care and brief change provided. Pt repositioned on left side with pillow under right hip. SCDs and heel protectors in place. Pt is currently resting with eyes closed. Respirations equal and unlabored. Call light within reach.
[2023-04-03 17:02] VITALS: BP 135/66
--- NOTE | 2023-04-03 17:40 | NUR ---
GASTRIC RESIDUAL 250ML, RETURNED. TUBE FEED BOLUS HELD AT THIS TIME, WILL REASSESS IN 1HR.
--- NOTE | 2023-04-03 18:41 | NUR ---
PT WITH CONTINUED GASTRIC RESIDUAL OF 250ML, 1700 TUBE FEED BOLUS HELD. ORAL CARE PROVIDED. PT MORE ALERT THIS EVENING, OPENING EYES AND FOLLOWING COMMANDS.
--- NOTE | 2023-04-03 19:22 | NUR ---
REPORT RECEIVED FROM DAY SHIFT RN. PT LYING IN BED RESTING WITH EYES CLOSED. RESPIRATIONS EVEN. CALL LIGHT IN REACH. PT IN VIEW OF NURSES STATION. WHITE BOARD UPDATED.
[2023-04-03 21:37] VITALS: BP 162/92
--- NOTE | 2023-04-03 22:24 | NUR ---
EVENING ASSESSMENT COMPLETE. GASTRIC RESIDUAL LESS THAN 30 ML. BOLUS FEED GIVEN PER ORDER FOLLOWED BY 150 ML FREE WATER FLUSH. PT VERNELL WELL. BP ELEVATED. PRN FOR SYSTOLIC >160 ADMIN PER ORDER. PEREZ PATENT WITH YELLOW URINE. PEREZ CARE DONE BY JOB SETTER HONING. 2PA TO REPOSITION. HOB ELEVATED. SCD'S AND HP IN PLACE. PT ALERT AND ORIENTED TO SELF AND PLACE. ABLE TO FOLLOW COMMANDS AND MINIMALLY PARTICIPATE IN CARES/ASSESSMENT. PT ABLE TO ANSWER SIMPLE QUESTIONS WITH YES OR NO. NODS HEAD YES WHEN ASKED IF SHE IS COMFORTABLE. ORAL CARE DONE AND CHAPSTICK APPLIED. CALL LIGHT IN REACH. PT IN VIEW OF NURSES STATION.
--- NOTE | 2023-04-04 00:15 | NUR ---
PT RESTLESS IN BED. WHEN ASKED IF IN PAIN, STATES "BOTH MY ARMS HURT" 2PA TO REPOSITION IN BED WITH PILLOWS TO LEFT SIDE. PRN FOR PAIN ADMIN PER EMAR THROUGH PEG TUBE WITH FREE WATER FLUSH. WHEN ASKED IF PT IS COMFORTABLE, STATES "FEELS GOOD." HOB ELEVATED. ORAL CARE DONE.
--- NOTE | 2023-04-04 02:24 | NUR ---
IV PUMP ALARMING. ISSUE RESOLVED. PT REPOSITIONED SELF IN BED AND REMOVED BLANKETS. AWAKENS UPON ENTERING. DENIES NEEDS AT THIS TIME.
--- NOTE | 2023-04-04 04:34 | NUR ---
PT REPOSITIONED WITH 2PA TO RIGHT SIDE WITH PILLOWS. ORAL CARE DONE. CHAPSTICK APPLIED. PT AWAKE, ANSWERING YES/NO QUESTIONS. ABLE TO FOLLOW SIMPLE COMMANDS.
[2023-04-04 05:38] LABS: BASOPHILS 0.8 % (0-2); EOSINOPHILS 1.4 % (0-6); HEMATOCRIT 36.2 % (35.0-50.0); HEMOGLOBIN 12.3 g/dL (12.0-18.0); LYMPHOCYTES 10.1 % (24-44); MCV 91.1 fl (81-99); MONOCYTES 7.6 % (0-12); NEUTROPHILS 80.1 % (39-80); PLATELET COUNT 385 K/uL (140-440); RBC 3.98 M/ul (4.3-5.7); RDW 13.8 (10.5-15.0)
[2023-04-04 05:56] LABS: ALBUMIN 1.7 g/dL (3.4-5.0); ALBUMIN/GLOBULIN RATIO 0.41 (1.1-2.4); ANION GAP 10.2 (7-21); BILIRUBIN, TOTAL 0.3 ng/dL (0.2-1.0); BUN/CREATININE RATIO 21.21 (6.0-28.6); CALCIUM 9.7 mg/dL (8.5-10.1); CREATININE, SERUM 0.66 mg/dL (0.55-1.02); POTASSIUM 4.2 mmol/L (3.5-5.1); PROTEIN, TOTAL 5.8 g/dL (6.4-8.2)
[2023-04-04 06:20] VITALS: BP 131/80
--- NOTE | 2023-04-04 07:15 | NUR ---
REPORT RECEIVED FROM ARCHITECTURAL DRAFTER NEVILLE TOLEDO. PATIENT IS LYING IN BED WITH THE HOB ELEVATED. PATIENT WITH EYES CLOSED AND RESPIRATIONS ARE EVEN AND UNLABORED. PATIENT WITH CALL LIGHT WITHIN REACH.
--- NOTE | 2023-04-04 08:41 | NUR ---
Pt repositioned onto left side in bed. Pillow under right hip. HOB elevated to 25 degrees. PT stated she is comfortable. Call light within reach.
[2023-04-04 09:03] VITALS: BP 134/55
--- NOTE | 2023-04-04 09:09 | NUR ---
Patient is only tolerating 4 bolus feeds per day. Will change her regimen to continue bolus feeds but change to Jevity 1.5 with Fiber formula. Bolus 1 carton at the following suggested times: 0800,1200, 0400, 2000. Give 200 ml water flush after each feed. Continue to keep HOB elevated for at least 1 hour after each feed. Check gastric residual prior to each feed. If residual >300 ml, hold feeding and reassess in 1 hour. If residual <200 ml, continue with feeding. This will provide 1,420 calories, 60 gm protein. Total water will be 720 ml from formula + 800 ml from water flushes = 1520 ml water total. Will continue to make adjustments as needed.
--- NOTE | 2023-04-04 09:35 | NUR ---
MS LYUDMILA. PT APPEARED SLEEPING. DID NOT DISTURB. LEFT PRAYER QUILT WITH CONTACT CARD. OFFERED PRYAERS FOR PEACE AND COMFORT.
--- NOTE | 2023-04-04 09:55 | NUR ---
PATIENT 0900 MEDICATIONS AND JEVITY 1.5 FEEDING ADMINISTERED PER THE EMAR AND DIETARY ORDER. PRIOR TO JEVITY 1.5 FEEDING THE PATIENT HAD 0 ML OF RESIDUAL. FULL ASSESSMENT COMPLETE AND DOCUMENTED IN THE CHART. PATIENT IS ORIENTED TO DAY OF THE WEEK AND SELF. LUNG SOUNDS ARE CLEAR BUT DIMINISHED IN THE BASES BILATERALLY. HEART SOUNDS REGULAR BUT SLIGHTLY TACHYCARDIC. HR WAS 99 WHEN TAKEN PRIOR TO MEDICATIONS. BOWEL TONES ARE ACTIVE IN ALL FOUR QUADRANTS. PATIENT STATED NO PAIN AT THIS TIME. 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 PATIENT TOLERATED FEEDING WELL. PEREZ CATHETER INTACT AND FASTENED TO THE LEFT UPPER LEG. PATIENT STATED NO NEEDS AT THIS TIME. CALL LIGHT AND PERSONAL BELONGINGS ARE WITHIN REACH.
--- NOTE | 2023-04-04 11:23 | NUR ---
PATIENT IS SITTING UPRIGHT IN THE RECLINER WITH THE FEET ELEVATED. PATIENT IS WORKING WITH SPEECH THERAPY AT THIS TIME. JOHN CAME IN AND NOTIFIED THE PATIENT THAT SHE WOULD COME BACK WHEN HER NIECE IS HERE. PATIENT SPEAKING MORE THAN THE PREVIOUS DAYS. PATIENT STATED NOT NEEDING ANYTHING AT THIS TIME. CALL LIGHT IS WITHIN REACH.
--- NOTE | 2023-04-04 11:50 | NUR ---
Spoke with pt, she is working with ST. Pt responds, Hi. Pt has awakened. Further questions and pt is confused difficult to understand. She is pleasant. Per ST, pt cont. with swallow issues. I was notified by Dr. Dhaliwal he had spoken with the POA and she will be in for a meeting today. Pt shows good improvement from yesterday and is now responding and following requests.
--- NOTE | 2023-04-04 12:01 | NUR ---
UR NOTE MCG STROKE: ISCHEMIC (ISC) 04/03/23 VARIANCE GL DAY 2
--- NOTE | 2023-04-04 13:15 | NUR ---
PATIENT HAD BM. PATIENT BRIEF CHANGED. MONY CARE AND CATHETER CARE COMPLETE. PATIENT TOLERATED WELL. ORAL CARE DONE. PATIENT ALEVYN ON THE LEFT HIP. BRIEF APPEARS TO BE RUBBING THAT AREA. RED AREA ON THE LEFT HIP BUT IS BLANCHABLE. JEVITY 1.5 FEEDING COMPLETE AFTER GETTING A RESIDUAL OF 125 ML. PATIENT TOLERATED THE FEEDING WELL. PATIENT POSITIONED ON THEIR LEFT SIDE. PATIENT GIVEN TYLENOL FOR A PAIN RATING OF 4/10. PATIENT STATED NO FURTHER NEEDS AT THIS TIME. CALL LIGHT AND PERSONAL BELONGINGS ARE WITHIN REACH.
[2023-04-04 13:31] VITALS: BP 141/88
--- NOTE | 2023-04-04 13:37 | NUR ---
IN TO ASSIST RN IN CHANGING PATIENT. PATIENT HOYERED BACK TO BED FROM CHAIR, 2PA EDWARD LIFT. MONY CARE AND CATH CARE DONE. NEW ATTENDS IN PLACE. PATIENT REPOSITIONED WITH PILLOW UNDER LEFT HIP. VITALS AND I&O'S DONE AND CHARTED. CALL LIGHT IN REACH. NO FURTHER NEEDS AT THIS TIME.
--- NOTE | 2023-04-04 13:45 | NUR ---
Met with pts shar,KATE Wells. She would like pt placed at [facility] as she would like to be involved in pts care. She states she will meet with [facility] tomorrow and begin the process of selling pts home and vehicles. She feels pt will need halfway placement.
--- NOTE | 2023-04-04 16:13 | NUR ---
PT REPOSITIONED IN SUPINE POSITION. HOB ELEVATED TO 12 DEGREES. PT STATES SHE IS COMFORTABLE. CALL LIGHT WITHIN REACH.
[2023-04-04 17:17] VITALS: BP 125/73
--- NOTE | 2023-04-04 17:34 | NUR ---
1700 AND 1800 MEDICATIONS ADMINISTERED PER THE EMAR. PATIENT IS NO SITTING UP IN THE RECLINER. JEVITY 1.5 FEEDING AND FREE WATER FLUSH COMPLETE AFTER THE RESIDUAL WAS 40 ML. PATIENT TOLERATED WELL. PATIENT STATED NO FURTHER NEEDS AT THIS TIME. CALL LIGHT AND PERSONAL BELONGINGS ARE WITHIN REACH.
--- NOTE | 2023-04-04 19:27 | NUR ---
REPORT RECEIVED FROM DAY SHIFT RN. PATIENT RESTING IN BED. PATIENT REPORTS NO FURTHER NEEDS. CALL LIGHT IN REACH.
[2023-04-04 19:37] VITALS: BP 138/72
--- NOTE | 2023-04-04 20:00 | NUR ---
PATIENT RESTING IN BED WITH EYES CLOSED. AWAKENS EASILY. VS AND I&Os OBTAINED AND RECORDED. TUBE FEEDING ADMINISTERED PER INSTRUCTION. PATIENT VERNELL WELL. ORAL CARE PROVIDED. PATIENT INCONTINENT OF STOOL. NEW BREIF AND PEREZ CARE PROVIDED AFTER MONY CARE. PATIENT REPOSITIONED IN BED. PATIENT FLOATED WITH 2 PILLOWS UNDER BILAT HIPS. ASSESSMENT COMPLETE. PATIENT REPORTS NO PAIN. IV FLUSHED AND WNL. CHAPSTICK PLACED ON PATIENT. SCDs AND HEEL PROTECTORS IN PLACE. PATIENT HAS NO FURTHER NEEDS. CALL LIGHT IN REACH.
--- NOTE | 2023-04-04 21:48 | NUR ---
PATIENT RESTING IN BED ON BACK. PATIENT REPOSITIONED. PILLOW UNDER LEFT HIP. PATIENT HAS NO FURTHER NEEDS. CALL LIGHT IN REACH.
--- NOTE | 2023-04-04 23:41 | NUR ---
PATIENT RESTING IN BED ON BACK WITH EYES CLOSED. RESPIRATIONS EVEN AND UNLABORED. PATIENT REPOSITIONED IN BED. NO FURTHER NEEDS CALL LIGHT IN REACH.
--- NOTE | 2023-04-05 02:14 | NUR ---
PATIENT INCONTINENT OF STOOL. PATIENTS BREIF, LUX, AND SLIDE SHEET CHANGED AFTER MONY CARE PROVIDED. PATIENT FOLLOWED MOST COMMANDS DURING CARE. PATIENT REPOSITIONED IN BED. PATIENT FLOATED WITH TWO PILLOWS UNDER BILAT HIPS. PATIENT HAS NO FURTHER NEEDS, CALL LIGHT IN REACH.
--- NOTE | 2023-04-05 04:08 | NUR ---
PATIENT RESTING IN BED ON BACK FLOATED WITH 2 PILLOWS. PATIENT REPOSITIONED IN BED. LEFT HIP PILLOW REMOVED FROM BED. RESPIRATIONS EVEN AND UNLABORED. CALL LIGHT IN REACH.
[2023-04-05 05:52] VITALS: BP 144/73
--- NOTE | 2023-04-05 06:43 | NUR ---
PATIENT RESTING IN BED. PATIENT INCONTINENT OF STOOL. NEW BREIF AND LUX PLACED AFTER MONY CARE PROVIDED. BARRIER CREAM APPLIED TO COCCYX. VS AND I&Os OBTAINED AND RECORDED. ASSESSMENT COMPLETE. PATIENT ORIENTED TO SELF AND . PATIENT REPORTS NO PAIN. PATIENT REPOSITIONED IN BED. HEEL PROTECTORS IN PLACE. FACE WASHED WITH A WASH CLOTH AND ORAL CARE PROVIDED. CHAPSTICK APPLIED TO LIPS. PATIENT REPORTS NO FURTHER NEEDS. CALL LIGHT IN REACH.
--- NOTE | 2023-04-05 08:52 | NUR ---
recieved report from nurse at 0730. pt was asleep with even and unlabored breathing. currently pt is resting but awake. pt is able to answer my questions and follow commands. assessment complete. no abnormal findings outside of last report. no other cares requested or needed at this time. call light within reach
[2023-04-05 09:26] VITALS: BP 152/75
--- NOTE | 2023-04-05 09:55 | NUR ---
PT TOLERATED PEG TUBE FEEDING WITH TOTAL OF 440 ML. PT FLOATED AND NEW ALLEVYN PLACED ON LEFT HIP DUE TO REDDENED AREA. PT HAD A BM SO PERICARE WAS DONE AND BARRIER CREAM APPLIED. SCDS PLACED. ORAL CARE DONE BY SPEECH THERAPIST THIS MORNING. NO OTHER CARES NEEDED AT THIS TIME CALL LIGHT WITHIN REACH
--- NOTE | 2023-04-05 10:45 | NUR ---
OT working with pt. Per OT, pt is tired but able to follow requests. She recommends SNF. UPdated pt may be able to dc tomorrow. I am waiting notes from the and therapy to send to [facility].
--- NOTE | 2023-04-05 11:00 | NUR ---
AFTER THE NURSE AND I CHANGED PATIENT'S ATTENDS THAN GOT HER CHAIR READY BY PUTTING PILLOWS ON EACH SIDE OF HER HIPS. THAN PUT A PILLOW UNDER HER LEGS.
--- NOTE | 2023-04-05 11:10 | NUR ---
MS LYUDMILA. PT APPEARED TO BE SLEEPING. DID NOT ROUSE. PROVIDED PRAYER. LEFT PRAYER CARD.
--- NOTE | 2023-04-05 11:50 | NUR ---
pt was changed and transfered from bed to chair and waiting to see physical therapy.
--- NOTE | 2023-04-05 14:50 | NUR ---
PT JUST RECIEVED ORAL CARE. MOUTH WAS DRY SO GAVE MOISTURIZER FOR MOUTH AND CHAPSTICK FOR LIPS. PT IS CURRENTLY UP IN CHAIR WATCHING TV. NO OTHER REQUESTS OR CARES NEEDED AT THIS TIME. CALL LIGHT WITHIN REACH
[2023-04-05 15:09] VITALS: BP 145/84
--- NOTE | 2023-04-05 17:21 | NUR ---
[facility] notes, PT/OT/ST note faxed to [facility] for review. They cont. to plan to take this pt, date has not been confirmed at this time.
[2023-04-05 17:22] VITALS: BP 141/79
--- NOTE | 2023-04-05 17:22 | NUR ---
Niece in and update given. She completed IM letter.
--- NOTE | 2023-04-05 19:22 | NUR ---
REPORT RECEIVED FROM DAY SHIFT RN. PATIENT RESTING IN BED & FLOATED WITH 2 PILLOWS UNDER BILAT HIPS. PATIENT HAS NO CURRENT NEEDS. CALL LIGHT IN REACH.
[2023-04-05 19:50] VITALS: BP 146/78
--- NOTE | 2023-04-05 20:02 | NUR ---
PATIENT RESTING IN BED WITH EYES CLOSED. VS AND I&Os OBTAINED AND RECORDED. ORAL CARE PROVIDED. CHAPSTICK APPLIED. ASSESSMENT COMPELTE. PATIENT ORIENTED TO SELF, , AND YEAR. PATIENT REPORTS NO CURRENT PAIN. SCDs AND HEEL PROTECTORS IN PLACE. IV FLUSHED AND WNL. PATIENT HAS NO FURTHER NEEDS. CALL LIGHT IN REACH.
--- NOTE | 2023-04-05 20:53 | NUR ---
PATIENT REPOSITIONED IN BED WITH PILLOW UNDER LEFT HIP. CALL LIGHT IN REACH.
--- NOTE | 2023-04-05 22:23 | NUR ---
PATIENT RESTING IN BED WITH EYES CLOSED. RESPIRATIONS EVEN AND UNLABORED. CALL LIGHT IN REACH.
--- NOTE | 2023-04-05 23:18 | NUR ---
PATIENT RESTING IN BED. TUBE FEEDING ADMINISTERED PER ORDER. PATIENT VERNELL WELL. PATIENT REPORTS FEELING COMFORTABLE. PATIENT REPOSITONED IN BED. CHAPSTICK APPLIED TO PATIENTS LIPS. NO FURTHER NEEDS. CALL LIGHT IN REACH.
--- NOTE | 2023-04-06 00:45 | NUR ---
PATIENT IN BED RESTING ON BACK WITH EYES CLOSED. RESPIRATIONS EVEN AND UNLABORED. PATIENT REPOSITONED IN BED WITH PILLOWS PLACED UNDER BILAT HIPS. CALL LIGHT IN REACH.
--- NOTE | 2023-04-06 05:12 | NUR ---
PATIENT RESTING IN BED ON BACK WITH EYES CLOSED. RESPIRATIONS EVEN AND UNLABORED. PATIENT REPOSITIONED IN BED. CALL LIGHT IN REACH.
[2023-04-06 05:37] LABS: BASOPHILS 0.8 % (0-2); EOSINOPHILS 1.6 % (0-6); HEMATOCRIT 34.8 % (35.0-50.0); HEMOGLOBIN 11.9 g/dL (12.0-18.0); LYMPHOCYTES 11.1 % (24-44); MCH 31.4 (27-36); MCHC 34.3 g/dl (30-36); MCV 91.7 fl (81-99); MONOCYTES 8.7 % (0-12); NEUTROPHILS 77.8 % (39-80); PLATELET COUNT 392 K/uL (140-440); RDW 14.2 (10.5-15.0)
[2023-04-06 05:47] VITALS: BP 145/76
[2023-04-06 05:55] LABS: ALBUMIN 1.8 g/dL (3.4-5.0); ALBUMIN/GLOBULIN RATIO 0.45 (1.1-2.4); ANION GAP 6.1 (7-21); BILIRUBIN, TOTAL 0.3 ng/dL (0.2-1.0); BUN/CREATININE RATIO 27.02 (6.0-28.6); CALCIUM 9.6 mg/dL (8.5-10.1); CREATININE, SERUM 0.74 mg/dL (0.55-1.02); POTASSIUM 4.1 mmol/L (3.5-5.1); PROTEIN, TOTAL 5.8 g/dL (6.4-8.2)
--- NOTE | 2023-04-06 06:18 | NUR ---
PATIENT RESTING IN BED. PATIENT INCONTINENT OF STOOL. NEW BREIF, LUX, AND DRAW SHEET CHANGED AFTER MONY CARE PROVIDED. BED BATH PROVIDED. NEW GOWN ON. HAIR WASHED WITH CAP AND HAIR COMBED. WARM BLANKET PROVIDED. PEREZ CATH CARE PROVIDED PER PROTOCOL. VS AND I&Os OBTAINED AND RECORDED. PATIENT REPOSITONED IN BED. 2 PILLOWS PLACED UNDER LEFT SIDE. ORAL CARE PROVIDED. CHAPSTICK APPLIED. FACE WASHED WITH WAS CLOTH. ASSESSMENT COMPLETE. PATIENT HAS NO FURTHER NEEDS. CALL LIGHT IN REACH. SCDs AND HEEL PROTECTORS IN PLACE.
[2023-04-06 09:08] VITALS: BP 129/64
--- NOTE | 2023-04-06 09:48 | NUR ---
RECIEVED REPORT AT 0700. PT WAS ASLEEP WITH EVEN AND UNLABORED BREATHING NOTED. CURRENTLY PT IS STILL ASLEEP. TRIED TO AROUSE BUT PT IS DROWSY BUT DOES RESPOND TO QUESTIONS. NO OTHER CARES NEEDED AT THIS TIME CALL LIGHT WITHIN REACH.
--- NOTE | 2023-04-06 11:08 | NUR ---
ROUNDS. PT APPEARED TO BE SLEEPING. DID NOT ROUSE. PROVIDED PRAYER.
[2023-04-06 13:10] VITALS: BP 88/53
--- NOTE | 2023-04-06 13:41 | NUR ---
SPOKE WITH NEVILLE PORRAS. PATIENT HAS TOLERATED BOTH OF HER BOLUS FEEDINGS TODAY. NO EMESIS, NO HIGH RESIDUALS. THE REGIMEN IS 1 CARTON OF JEVITY 1.5 W/FIBER QID FOLLOWED BY 200 ML WATER FLUSH. SHE WILL GET 2 MORE FEEDINGS TODAY IF NO RESIDUALS AND NO EMESIS. CONTINUE CURRENT REGIMEN UNLESS THERE ARE ANY CONCERNS FROM THE NURSE OR MD.
--- NOTE | 2023-04-06 15:36 | NUR ---
Attempted to speak with Ana. She waves at me, but does not answer questions. I spoke with FRANCISCA at [facility] and he states the RN reviewed the chart. They will tentatively accept her on Sunday. We will need to touch base on Sunday.
[2023-04-06 18:46] VITALS: BP 103/71
--- NOTE | 2023-04-06 19:25 | NUR ---
BEDSIDE REPORT RECEIVED FROM CHIQUITA LOZADA, PT RESTING QUIETLY, OPENS EYES AND SMILES, HOB REMAINS ELEVATED APPROX 30 DEGREES, SIDE RAILS UP X 4, BED LOW POSITION.
--- NOTE | 2023-04-06 21:00 | NUR ---
YPT APPEARS TO SLEEP, RESP EVEN AND REG, WITHOUT DISTRESS.
[2023-04-06 21:37] VITALS: BP 129/66
--- NOTE | 2023-04-06 21:37 | NUR ---
RN TO BEDSIDE, PT AWAKE AND SMILES, VERBALIZING A FEW WORDS WHEN SPOKEN TO, FOLLOWS SIMPLE COMMANDS, VS DONE AND STABLE, LEFT AC SL FLUSHES WELL, SITE INTACT, PERICARE/CATH CARE DONE, ATTENDS CHANGED FOR SOFT BROWN STOOL, COCCYX REDDENED, CLEANSED AND BARRIER CREAM TO SITE, PT FLOATED WITH PILLOWS, HOB ELEVATED APPROX 30 DEGREES, ASSESSMENT COMPLETED, SCDS IN PLACE WITH HEEL PROTECTORS, GT INTACT, RESIDUAL OF 25ML, JEVITY 1.5 ELIOT ONE BOX GIVEN PER GRAVITY AFTER RESIDUAL RETURNED, GT FLUSHED AFTER REGLAN GIVEN CRUSHED AND IN WATER, FLUSHED WITH 200ML FREE WATER PER GRAVITY, PT RESTING QUIETLY, WITHOUT DISTRESS.
--- NOTE | 2023-04-06 22:40 | NUR ---
PT APPEARS TO SLEEP, RESP EVEN AND REG, HOB REMAINS ELEVATED AT THIS TIME.
--- NOTE | 2023-04-07 00:50 | NUR ---
PT RESTING, AWAKENS TO VOICE, PT STATES SHE IS DOING OK, ATTENDS CHECKED, NOTED SOFT BROWN STOOL, PERICARE AND CATH CARE GIVEN, BARRIER CREAM ON COCCYX, PT REPOSITIONED TO LEFT SIDE. PT RESTING WITHOUT COMPLAINTS.
--- NOTE | 2023-04-07 02:12 | NUR ---
PT APPEARS TO SLEEP, RESP EVEN AND REG.
--- NOTE | 2023-04-07 03:10 | NUR ---
PT APPEARS TO SLEEP, RESP EVEN AND REG, WITHOUT DISTRESS.
--- NOTE | 2023-04-07 03:50 | NUR ---
PT CONTINUES TO REST QUIETLY WITH EYES CLOSED.
[2023-04-07 05:50] VITALS: BP 132/70
--- NOTE | 2023-04-07 05:50 | NUR ---
PT AWAKE, SMILES AT NURSE, VS DONE AND VS STABLE, ATTENDS DRY, PT REPOSTIONED TO SIDE, I/O DONE, PT RESTING WITHOUT DISTRESS.
--- NOTE | 2023-04-07 07:27 | NUR ---
VERBAL BEDSIDE REPORT RECEIVED FROM OSWALD Good RN. PT IN BED, ALERT AND AWAKE. NO REQUESTS AT THIS TIME.
--- NOTE | 2023-04-07 08:11 | NUR ---
Patient rotated off of right side. oral and am care completed. Pt stated "yes", to being comfortable. call light within reach.
[2023-04-07 09:18] VITALS: BP 147/56
--- NOTE | 2023-04-07 09:46 | NUR ---
JEVITY 1.5, ONE CARTON VIA G-TUBE, RECEIVED. NO RESIDUAL NOTED PRIOR TO FEEDING. G-TUBE FLUSHED WITH 200 CC OF WATER AFTER FEEDING. HOB AT 32 DEGREES. AM MEDICATION RECEIVED VIA G-TUBE FOLLOWED BY 60 CC FLUSH.
--- NOTE | 2023-04-07 11:21 | NUR ---
PT SITS UP IN RECLINER. RESTS WITH EYES CLOSED, RESP EVEN AND UNLABORED.
--- NOTE | 2023-04-07 13:09 | NUR ---
G-TUBE RESIDUAL 125 CC. JEVITY 1.5, ONE CARTON RECEIVED VIA G-TUBE FOLLOWED BY 200 CC FLUSH WITH WATER. PT SITS UP GREATER THAN 30 DEGREES IN RECLINER. PT AWAKE AND ALERT, WATCHES TV.
[2023-04-07 13:23] VITALS: BP 165/63
--- NOTE | 2023-04-07 13:30 | NUR ---
PATIENT REPOSITIONED IN CHAIR. PT REFUSED ORAL CARE AT THIS TIME. PEREZ DRAINED AND DOCUMENTED. CALL LIGHT WITHIN REACH.
--- NOTE | 2023-04-07 14:30 | NUR ---
PT RESTS, RECLINED, IN RECLINER, WITH EYES CLOSED, RESP EVEN AND UNLABORED.
[2023-04-07 17:51] VITALS: BP 149/60
--- NOTE | 2023-04-07 18:00 | NUR ---
75CC OF RESIDUAL NOTED VIA G-TUBE. JEVITY 1.5, ONE CANISTER, FEEDING PROVIDED VIA G-TUBE, FOLLOWED BY 200CC FLUSH WITH WATER. MEDICATIONS RECEIVED VIA G-TUBE. PT AWAKE AND ALERT, COMMUNICATES WITH ONE TO TWO WORDS AT A TIME. PT HEAD POSITIONED GREATER THAN 30 DEGREES IN THE RECLINER.
--- NOTE | 2023-04-07 19:12 | NUR ---
BEDSIDE REPORT RECEIVED FROM MINNIE LOZADA, PT RESTING QUIETLY IN RECLINER.
--- NOTE | 2023-04-07 20:08 | NUR ---
PT REMAINS UP IN RECLINER, ALERT, APPEARS COMFORTABLE, SMILES WHEN SPOKEN TOO.
[2023-04-07 21:05] VITALS: BP 126/54
--- NOTE | 2023-04-07 21:05 | NUR ---
PT AWAKE AND ALERT, SMILING, VS DONE AND STABLE, PT RETURNED TO BED VIA EDWARD WITH 2PA, PT TOLERATED TRANSFER WELL, PT HAD SOFT BROWN STOOL, PERICARE AND CATH CARE COMPLETED, FRESH ATTENDS AND CHUX PLACED AFTER BARRIER CREAM APPLIED TO COCCYX. PT REPOSITIONED TO SIDE, RESTING.
--- NOTE | 2023-04-07 22:40 | NUR ---
PT AWAKE, ALERT, ABLE TO ANSWER QUESTIONS WITH "YES" "OK", GT IN PLACE, SITE WITHOUT DRAINAGE, RESIDUAL OF 35 ML, JEVITY 1.5CAL, GIVEN PER GRAVITY, PT APPEARS TO BE TOLERATION FEEDING WELL, RT MED GIVEN CRUSHED AND IN WATER, FREE WATER OF 200ML GIVEN PER GRAVITY. HOB REMAINS ELEVATED AT APPROX 30 DEGREES. PT WITHOUT DISTRESS.
--- NOTE | 2023-04-07 23:30 | NUR ---
ASLEEP, RESP EVEN AND REG, WITHOUT DISTRESS, HOB REMAINS ELEVATED APPROX 30 DEGREES.
--- NOTE | 2023-04-08 01:05 | NUR ---
PT RESTING WITH EYES CLOSED, RESP EVEN AND REG.
--- NOTE | 2023-04-08 02:25 | NUR ---
PT RESTING QUIETLY, REPOSITIONED TO RIGHT, SCDS REMOVED, HEEL PROTECTORS REMAIN IN PLACE, PEREZ EMPTIED 250ML YELLOW URINE.
--- NOTE | 2023-04-08 04:10 | NUR ---
PT APPEARS TO SLEEP, RESP EVEN AND REG.
[2023-04-08 06:05] VITALS: BP 143/79
--- NOTE | 2023-04-08 06:05 | NUR ---
PT AWAKEN, VS DONE AND STABLE, ATTENDS CLEAN, PT REPOSITIONED TO SIDE, PEREZ DRAINING WELL, HOB REMAINS APPROX 30%.
--- NOTE | 2023-04-08 08:02 | NUR ---
PT RESTING EYES CLOSED AT TIME OF SHIFT REPORT. DOES NOT WAKE TO VOICES. AWAKENS NOW WITH TURNING. INDUSTRIAL RELATIONS COMMISSIONER COMPLETES ORAL CARE AND FACE WASH. PT APPEARS COMFORTABLE, SMILES WHEN SPOKEN TO.
--- NOTE | 2023-04-08 09:33 | NUR ---
PT CONTINUES DOZING THIS SHIFT. AWAKENS TO VOICE AND TOUCH, SMILES APPEARS CONTENT, NO S/S OF PAIN OR DISTRESS. PT HAS BEEN REPOSITIONED IN BED AND ORAL CARE COMPLETE.
[2023-04-08 09:37] VITALS: BP 134/51
--- NOTE | 2023-04-08 09:44 | NUR ---
PATIENT IN BED. EYES CLOSED, RESPIRATIONS EVEN. PEREZ DRAINED AND DOCUMENTED. VITALS COMPLETED. PT HAS NO REQUESTS AT THIS TIME. CALL LIGHT WITHIN REACH.
--- NOTE | 2023-04-08 11:16 | NUR ---
P/T JUST FINISHED WORKING WITH PT REPORTS GOOD IMPROVEMENT. PT ABLE TO SIT UP ON EDGE OF BED AND MOVING EXTREMITIES. PT INCONT OF STOOL MONY CARE AND PEREZ CARE COMPLETED. SKIN ON BOTTOM IN GOOD SHAPE NO REDNESS OR SIGNS OF PRESSURE ISSUES. EDWARD TO THE CHAIR
--- NOTE | 2023-04-08 12:39 | NUR ---
PT UP IN THE CHAIR DOZING. SLEEPY BUT ALERT WITH STIMULATION. PT ANSWERS QUESTIONS APPROPRIATELY, AGREES SHE IS COMFORTABLE DENIES NEEDS OF. ORAL CARE PROVIDED
--- NOTE | 2023-04-08 13:20 | NUR ---
DR CARTY AGREES SL CAN BE DC'D WITH NO NEED TO REPLACE AT THIS TIME, HOPE FOR DC TOMORROW
[2023-04-08 14:54] VITALS: BP 167/52
--- NOTE | 2023-04-08 14:58 | NUR ---
PT REMAINS UP IN THE CHAIR REPOSITIONED SHE AGREES SHE IS FINE TO CONTINUE UP AT THIS TIME.
--- NOTE | 2023-04-08 16:17 | NUR ---
PT HAS VISITORS X2 SHE HAS A GREAT SMILE AND IS ENJOYING THE VISIT.
--- NOTE | 2023-04-08 17:19 | NUR ---
PT MOVED FROM CHAIR TO THE BED VIA EDWARD. VISITOR ARE IN AT THIS TIME PT SITTING UPRIGHT MUSIC PLAYING AGREES SHE IS COMFORTABLE
[2023-04-08 18:05] VITALS: BP 143/56
--- NOTE | 2023-04-08 19:08 | NUR ---
SHIFT REPORT RECEIVED FROM CRIS RN, PT RESTING QUIETLY WITH EYES CLOSED, RESP EVEN AND REG.
[2023-04-08 21:25] VITALS: BP 137/79
--- NOTE | 2023-04-08 21:25 | NUR ---
PT AWAKEN, ALERT, ANSERING QUESTIONS APPROPRIATELY, SMILES, VS DONE AND STABLE, PERICARE AND CATH CARE COMPLETED AFTER SOFT BROWN STOOL NOTED IN ATTENDS, EDWARD LIFT PAD AND LINEN CHANGED, FRESH GOWN, BARRIER CREAM TO BUTTOCKS, ORAL CARE DONE, FACE WASHED AND HAIR COMBED. PT REPOSITIONED UP IN BED.
--- NOTE | 2023-04-08 22:00 | NUR ---
PT RESTING IN BED WITH EYES CLOSED, RESP EVEN AND REG, GT IN PLACE, RESIDUAL 15ML, JEVITY 1.5CAL 1 CARTOON GIVEN PER GRAVITY FOLLOWED BY 200ML WATER AFTER REGLAN GIVEN CRUSHED IN SMALL AMOUNT OF WATER. PT TOLERATED FEEDING WITHOUT GRIMACING, CONTINUES TO SLEEP.
--- NOTE | 2023-04-09 00:25 | NUR ---
PT AWAKE, LEGS UNCOVERED, PT SMILES WHEN SPOKEN TOO, ATTENDS DRY WITHOUT STOOL, PT REPOSITIONED IN BED TOWARD LEFT SIDE, HEEL PROTECTORS PLACED ON PT, BLANKETS BACK ON PT. PT STATES SHE IS OK RIGHT NOW.
--- NOTE | 2023-04-09 01:30 | NUR ---
PT RESTING QUIETLY, RESP EVEN AND REG.
--- NOTE | 2023-04-09 04:00 | NUR ---
PT ASLEEP, RESP EVEN AND REG, PILLOW PULLED OUT FROM LEFT SIDE, PT WITHOUT DISTRESS.
[2023-04-09 06:00] VITALS: BP 166/67
--- NOTE | 2023-04-09 06:00 | NUR ---
PT AWAKEN FOR VS, ATTENDS DRY, PEREZ PATENT DRAINING YELLOW URINE, PT REPOSITIONED UP IN BED, REPOSITIONED TO LEFT SIDE, HOB REMAINS ELEVATED APPROX 25 DEGREES, PT BACK TO SLEEP, RESP EVEN AND REG.
--- NOTE | 2023-04-09 07:22 | NUR ---
PT RESTING EYES CLOSED AT TIME OF SHIFT REPORT. BREATHING EVEN AND UNLABORED.
--- NOTE | 2023-04-09 08:30 | NUR ---
Discussed pt in 0830 meeting, per Dr. Corral pt can dc today. I texted FRANCISCA a [facility] and they can take this pt at [address] Corral prefers 15 to be able to complete orders.
--- NOTE | 2023-04-09 08:45 | NUR ---
Nasreen care, barrier cream and brief change applied. Catheter care provided. Pt repositioned in supine position. Heel protectors in place. Call light within reach.
--- NOTE | 2023-04-09 08:50 | NUR ---
PERSONAL CARES COMPLETE PT REPOSITIONED. SITTING UPRIGHT IN BED. 0 RESIDULE PRIOR TO TUBE FEED. PT AGREES SHE IS COMFORTABLE
[2023-04-09 09:14] VITALS: BP 155/69
--- NOTE | 2023-04-09 09:45 | NUR ---
PT WORKING WITH P/T CARE COORDINATED
--- NOTE | 2023-04-09 10:15 | NUR ---
PT TO THE CHAIR POSITIONED FOR COMFORT. CALL LIGHT IN HAND PT IS ABLE TO DEMONSTRATE ABILITY TO PUSH THE BUTTON. ORAL CARE COMPLETE PT DENIES DISCOMFORT OR NEED
[2023-04-09] MEDS ORDERED: CLOPIDOGREL75 MG PT (11:03)
[2023-04-09] MEDS ORDERED: LOSARTAN POTASS25 MG PT (11:04)
[2023-04-09] MEDS ORDERED: LIPITOR40 MG PT (11:04)
[2023-04-09] MEDS ORDERED: ASPIRIN81 MG PO (11:04)
[2023-04-09] MEDS ORDERED: FLUOXETINE HCL20 MG PT (11:05)
[2023-04-09] MEDS ORDERED: METOCLOPRAMIDE H5 MG PT (11:05)
--- NOTE | 2023-04-09 11:07 | NUR ---
PT CONTINUES UP IN THE CHAIR RESTING EYES CLOSED AT THIS TIME
--- NOTE | 2023-04-09 12:00 | NUR ---
Orders completed. Faxed orders, PASRR, DC summary, and POLST to [facility]. Completed packet with [facility]ar and nonemergent transport papers. Waiting for notificiation from [facility] orders are accepted.
--- NOTE | 2023-04-09 12:40 | NUR ---
PT CONTINUES UP IN THE CHAIR. REPOSITIONED FOR COMFORT ORAL CARE COMPLETE. TF WELL TOLERATED. PT AGREES SHE IS COMFORTABLE
--- NOTE | 2023-04-09 13:15 | NUR ---
UR NOTE [facility] STROKE: ISCHEMIC (ISC) 04/06/23 VARIANCE GL DAY 2 04/08/23 MET GL DAY 2 04/09/23 MET GL DAY 3
[2023-04-09 13:28] VITALS: BP 166/63
--- NOTE | 2023-04-09 13:38 | NUR ---
[facility] order added for lidocain to be used with roque catheter and wording changed on home Losartan per Dr. Corral. Scheduled EMS to transport pt to [facility] between 2 and 3 pm. Herlinda is aware pt will go to [place] today.
--- NOTE | 2023-04-09 14:30 | NUR ---
PT PIVOTED FROM THE CHAIR TO THE BED WITH TWO PERSON ASSIST USING THE GAIT BELT. MONY CARE AND BRIEF CHANGE PROVIDED. PERSONAL ITEMS GATHERED AND PLACED IN GREEN PT ITEM BAGS. PT POSITIONED ON LEFT SIDE WITH PILLOW UNDER RIGHT HIP WAITING FOR NONEMERGENT TRANSFER TO [facility].
== END 2023-04-09 14:50 | DRG 65 ==
LOC: ED 10:07 → CCU 13:13 → MS 13:13 → CCU 03-30 13:40 → MS 03-31 12:50
PROVIDERS: Colon & Rectal Surgery; Emergency Medicine; Family Medicine; ADMIT Internal Medicine; ATTEND Internal Medicine
PROC: 0DH63UZ Insertion of Feeding Device into Stomach, Percutaneous Approach (ICD-10-PCS; principal; 2023-03-30 12:00)
DX: I63.9 Cerebral infarction, unspecified (principal); G81.94 Hemiplegia, unspecified affecting left nondominant side; I48.91 Unspecified atrial fibrillation; I10 Essential (primary) hypertension; E87.6 Hypokalemia; R01.1 Cardiac murmur, unspecified; F32.A Depression, unspecified; R47.01 Aphasia; R47.81 Slurred speech; R11.0 Nausea; R47.1 Dysarthria and anarthria; M25.512 Pain in left shoulder; T79.6XXA Traumatic ischemia of muscle, initial encounter; D72.829 Elevated white blood cell count, unspecified
CPT/HCPCS: 00731; 36415; 70450; 70496; 70498; 70551; 71045; 72170; 73030; 80048; 80053; 81001; 82553; 83735; 84100; 85025; 92507; 92610; 93005; 93010; 93306; 94760; 96361; 97110; 97112; 97140; 97163; 97165; 97166; 97530; 97535; 99285-25; A9270; J0360; J1644; J2270; J2371; J2405; J2704; J3010; J3475; J3480; J3490; J7030; J7042; J7060; J7121; Q9967